=== PATIENT | female | born 1955 | race Caucasian/White ===

== ENCOUNTER → 2020-02-12 11:17 | Outpatient (BNVA) | payer MEDICARE, MEDICAID, SELFPAY | PROVIDERS: Family Provider Family Medicine; PCP Family Medicine; Visit Provider Family Medicine | DX: M84.362A Stress fracture, left tibia, initial encounter for fracture (principal); E78.00 Pure hypercholesterolemia, unspecified; I10 Essential (primary) hypertension; E11.9 Type 2 diabetes mellitus without complications | CPT/HCPCS: 73590; 80053; 80061; 83036; 85025 ==

== ENCOUNTER → 2020-11-12 15:18 | Outpatient (BNVA) | payer MEDICARE, SELFPAY | PROVIDERS: Family Provider Family Medicine; PCP Family Medicine; Visit Provider Family Medicine | DX: E11.65 Type 2 diabetes mellitus with hyperglycemia (principal); E78.00 Pure hypercholesterolemia, unspecified; I10 Essential (primary) hypertension; Z79.4 Long term (current) use of insulin; J01.10 Acute frontal sinusitis, unspecified | CPT/HCPCS: 80053; 80061; 83036; 83721; 85025 ==

== ENCOUNTER 2021-07-26 03:06 | Inpatient (IN) | payer MEDICARE, MEDICAID, SELFPAY ==
[2021-07-26] VITALS (21 sets, daily range): BP systolic 123–167; BP diastolic 59–81; PULSE 72–99; RESP 16–24; TEMP 36.7–37; O2SAT 72–96; BMI 35.8
--- NOTE | 2021-07-26 03:07 | ECG_ITS ---
[facility] Test Date: 2021-07-26 Pat Name: Serenity Ramirez Department: Room: Gender: Female Controlled Area Checker: : 1955 Requested By: Marielle Massey Order Number: [id number] Reading MD: Bruna Bangura M.D. Measurements Intervals [place] Rate: 77 P: 21 NM: 156 QRS: 24 QRSD: 102 T: 52 QT: 405 QTc: 460 Interpretive Statements SINUS RHYTHM NONSPECIFIC T-WAVE ABNORMALITY Compared to ECG 07/23/2021 15:12:22 T-wave abnormality now present Electronically Signed On 07-26-2021 15:00:53 CDT by Bruna Bnagura M.D. [id number]
--- NOTE | 2021-07-26 03:07 | CTR_ITS ---
PROCEDURE INFORMATION: Exam: CT Head Without Contrast Exam date and time: 07/26/2021 3:07 AM Age: 66 years old Clinical indication: Weakness, extremity; Patient HX: Witnessed collapse with left extremity weakness. History of prior RT side stroke. Last known well time of 45 minutes ago. ; Additional info: Symptoms of acute stroke TECHNIQUE: Imaging protocol: Computed tomography of the head without contrast. Radiation optimization: All CT scans at this facility use at least one of these dose optimization techniques: automated exposure control; mA and/or kV adjustment per patient size (includes targeted exams where dose is matched to clinical indication); or iterative reconstruction. Other technique: STROKE PROTOCOL was implemented. COMPARISON: MR head wo/w con [id number] 07/24/2021 9:15 AM RADIATION DOSE METRICS: Total DLP (mGy-cm): 835.78 FINDINGS: Brain: Focal hypoattenuation seen within the right frontal haas radiata compatible with a subacute infarction. This was present on MRI imaging dated 07/24/2021. Scattered hypodense foci are seen in the deep white matter of the left cerebral hemisphere compatible with chronic lacunar infarctions. These appear stable as well. Cerebral ventricles: No ventriculomegaly. Paranasal sinuses: Visualized sinuses are unremarkable. No fluid levels. Mastoid air cells: Visualized mastoid air cells are well aerated. Bones/joints: Unremarkable. No acute fracture. Soft tissues: Unremarkable. CT/CT head wo con* [id number] IMPRESSION: There are no new acute intracranial findings. ASSESSMENT: ASPECTS ([place] Stroke Program Early CT Score) is 10.
--- NOTE | 2021-07-26 03:13 | W.ED.NEUROSD ---
HPI - Neuro Symptoms/Deficit General: Chief Complaint: Neuro Symptoms/Deficit Stated Complaint: Stroke Time Seen by Provider: 07/26/21 03:07 Source: patient and EMS Mode of arrival: EMS Limitations: no limitations History of Present Illness: 66-year-old female who had been admitted here few days ago for TIA at that time she is having some right-sided facial droop. Speaking to her he states that she has had some left-sided weakness throughout the day yesterday was having hard time opening doors and went to bed 1130 he states that she had slurred speech yesterday as well. He states that she woke up about 245 with increasing left-sided weakness and left facial droop and fell when she tried to get up and stand Associated symptoms: Deny chest pain, nausea or vomiting Review of Systems Const: Denies: fever(s), chills, body aches or change in appetite Eyes: Denies: blurry vision or eye discomfort ENMT: Denies: throat pain or dental pain Card: Denies: chest pain Resp: Denies: dyspnea GI: Denies: abdominal pain, nausea, vomiting or diarrhea : Denies: dysuria Musc: Denies: neck pain or back pain Skin/Breast: Denies: rash Neuro: Reports: weakness in extremities Psych: Denies: depression [place]/Lymph: Denies: easy bruising All/Imm: Denies: urticaria PFSH ED PFSH: Medical History Cardiac arrest Complicated UTI (urinary tract infection) Diabetes Epilepsia Hypercholesteremia Hypertension Seizure Surgical History No significant past surgical history Family History Other No significant family history Social History Smoking and tobacco status: never smoked Alcohol intake: never Household members: significant other NIH stroke score NIHSS: Level Of Consciousness - 1a: 0 Level Of Consciousness Questions - 1b: Both Correct Level Of Consciousness Commands - 1c: Both Correct Best Gaze - 2: Normal Visual [place] - 3: No Visual Loss Facial Palsy - 4: Partial Paralysis Motor Arm Right - 5: No Drift Motor Arm Left - 5: Effort Against [place] Motor Leg Right - 6: No Drift Motor Leg Left - 6: Effort Against [place] Limb Ataxia - 7: Absent Sensory - 8: Normal Best Language - 9: Mild/Moderate Aphasia Dysarthia - 10: Mild/Moderate Dysarthia Extinction And Inattention - 11: 0 Score: Total Score: 8 Physical Exam Const: COMMON NORMALS: no acute distress, patient oriented x3 and healthy appearing HENMT: COMMON NORMALS: normocephalic and atraumatic HEAD & SCALP: normocephalic and atraumatic Eye: COMMON NORMALS: Equal, round and reactive pupils present and EOMs intact bilaterally PUPIL: Yes Equal, round and reactive pupils present Neck/C-Spine: COMMON NORMALS: full ROM and supple Chest: COMMONS NORMALS: normal inspection of the chest and normal palpation of entire chest wall Resp: COMMON NORMALS: normal respiratory effort, No retractions, No use of accessory muscles and clear to auscultation bilaterally AUSCULTATION: clear to auscultation bilaterally Cardio: COMMON NORMALS: regular rate, regular rhythm and No murmurs present (Cardio) RATE: regular rate RHYTHM: regular rhythm GI: COMMON NORMALS: Normal to inspection, nondistended, normoactive bowel sounds present, Soft to palpation, non-tender and no masses PALPATION: Yes Soft to palpation Extremity: COMMON NORMALS: normal to inspection and full ROM Neuro: COMMON NORMALS: patient oriented x3 and no focal motor deficits OTHER: left sided facial droop, left arm and leg weakness Psych: COMMON NORMALS: mental status grossly normal, Normal thought process present and cooperative THOUGHT PROCESS: Normal thought process present Skin: COMMON NORMALS: no rashes or lesions noted and no wounds GENERAL SKIN EXAM: no rashes or lesions noted Course Vital Signs: Vital signs: Vital Signs Temperature 98.0 F 07/26/21 03:11 Pulse Rate 77 07/26/21 03:11 Respiratory Rate 16 07/26/21 03:11 Blood Pressure 161/66 07/26/21 03:11 Pulse Oximetry 95 07/26/21 03:11 MDM - Neuro Symptoms/Deficit Medical Decision Making Patient presents with a CVA. Patient's had multiple falls and increasing weakness since being home neurology was consulted through [facility] patient is not a tPA candidate due to time as this been going on for days. They did recommend readmission I spoke to family we will readmit her at this time. Lab Data : 07/26/21 03:30 07/26/21 03:[address] 07/26/21 03:07 IMPRESSION: There are no new acute intracranial findings. ASSESSMENT: ASPECTS ([place] Stroke Program Early CT Score) is 10. Chest X-Ray 07/26/21 03:22 IMPRESSION: No acute findings. Head/Neck CTA 07/26/21 03:54 IMPRESSION: 1. No large vessel stenosis or occlusion. 2. Multiple areas of infarction seen within the deep white matter of the cerebral hemispheres bilaterally. The largest is seen in the right posterior frontal deep white matter. Today, this lesion appears larger compared with 07/23/2021 but similar in size configuration compared with the MRI a 07/24/2021.. IMPRESSION: No stenosis or occlusion. REFERENCES: NASCET CRITERIA. The degree of internal carotid artery stenosis is based on NASCET criteria. Normal is no stenosis. Mild is less than 50% stenosis. Moderate is 50-69% stenosis. Severe is 70% to 99% stenosis. Total occlusion is no detectable patent lumen. Laboratory Results WBC 8.2 10^3/uL (4.0-10.0) 07/26/21 03:30 RBC 5.01 10^6/uL (4.1-5.3) 07/26/21 03:30 Hgb 15.0 g/dL (11.5-15.3) 07/26/21 03:30 Hct 45.1 % (37.0-47.0) 07/26/21 03:30 MCV 90.0 fl (81-99) 07/26/21 03:30 MCH 29.9 pg (28.0-34.0) 07/26/21 03:30 MCHC 33.3 g/dL (30.0-36.0) 07/26/21 03:30 RDW 11.8 % (12.1-15.1) L 07/26/21 03:30 Plt Count 257 10^3/cmm (130-400) 07/26/21 03:30 MPV 9.9 fL (7.4-10.4) 07/26/21 03:30 Neut % (Auto) 71.4 % 07/26/21 03:30 Lymph % (Auto) 16.4 % 07/26/21 03:30 [place] % (Auto) 8.8 % 07/26/21 03:30 Eos % (Auto) 2.6 % 07/26/21 03:30 Baso % (Auto) 0.6 % 07/26/21 03:30 Neut # (Auto) 5.86 10^3/uL (1.8-7.7) 07/26/21 03:30 Lymph # (Auto) 1.4 10^3/uL (0.8-4.8) 07/26/21 03:30 [place] # (Auto) 0.7 10^3/uL (0.2-0.9) 07/26/21 03:30 Eos # (Auto) 0.2 10^3/uL (0.0-0.8) 07/26/21 03:30 Baso # (Auto) 0.1 10^3/uL (0.0-0.1) 07/26/21 03:30 Nucleated RBC % (auto) 0 % 07/26/21 03:30 Nucleated RBCs # 0.0 /100WBC 07/26/21 03:30 PT 13.10 SECONDS (12.1-14.9) 07/26/21 03:30 INR 0.97 (0.8-1.2) 07/26/21 03:30 APTT 24.6 SECONDS (23.9-36.7) 07/26/21 03:30 Sodium 136 mmol/L (136-145) 07/26/21 03:30 Potassium 3.7 mmol/L (3.5-5.1) 07/26/21 03:30 Chloride 100 mmol/L (98-107) 07/26/21 03:30 Carbon Dioxide 25 mmol/L (22-29) 07/26/21 03:30 Anion Gap 14.7 (5-19) 07/26/21 03:30 BUN 14 mg/dL (8-23) 07/26/21 03:30 Creatinine 0.5 mg/dL (0.5-0.9) 07/26/21 03:30 GFR Calculation 122.7 mL/min (90-130) 07/26/21 03:30 Glucose 365 mg/dL (65-115) H 07/26/21 03:30 POC Glucose 324 mg/dL (70-110) H 07/26/21 03:17 Calculated Osmolality 297 mOsm/kg (285-295) H 07/26/21 03:30 Calcium 8.4 mg/dL (8.5-10.5) L 07/26/21 03:30 Total Bilirubin 0.6 mg/dL (0.15-1.2) 07/26/21 03:30 AST 23 U/L (0-32) 07/26/21 03:30 ALT 23 U/L (0-33) 07/26/21 03:30 Alkaline Phosphatase 95 IU/L (35-105) 07/26/21 03:30 Total Protein 6.7 g/dL (6.6-8.7) 07/26/21 03:30 Albumin 3.7 g/dL (3.5-5.2) 07/26/21 03:30 Globulin 3.0 g/dL (1.3-4.6) 07/26/21 03:30 EKG Data EKG 1: I personally reviewed and interpreted this EKG as follows: EKG interpretation date: 07/26/21 EKG interpretation time: 03:15 Interpretation: nsr hr [address] or t wave abnormalities qrs 102 qtc 437 Discharge Plan Discharge Patient Disposition: Admitted As Inpatient Clinical Impression: CVA (cerebral vascular accident) Condition: Stable Coding Level of Care Code ED 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
[2021-07-26 03:21] LABS: Glucose Point of Care 324 mg/dL (70-110)
--- NOTE | 2021-07-26 03:22 | XRR_ITS ---
PROCEDURE INFORMATION: Exam: XR Chest Exam date and time: 07/26/2021 3:54 AM Age: 66 years old Clinical indication: Patient HX: Stroke like symptoms. ; Additional info: CVA TECHNIQUE: Imaging protocol: XR of the chest. Views: 1 view. COMPARISON: CR Chest 1 [place] [id number] 11/13/2016 11:00 AM FINDINGS: Lungs: Unremarkable. No consolidation. Pleural spaces: Unremarkable. No pleural effusion. No pneumothorax. Heart/Mediastinum: Unremarkable. No cardiomegaly. Bones/joints: Unremarkable. XR/XR chest 1V portable [id number] IMPRESSION: No acute findings.
[2021-07-26 03:46] LABS: Basophils # 0.1 10^3/uL (0.0-0.1); Basophils % 0.6 %; Eosinophils # 0.2 10^3/uL (0.0-0.8); Eosinophils % 2.6 %; Hematocrit 45.1 % (37.0-47.0); Lymphocytes # 1.4 10^3/uL (0.8-4.8); Lymphocytes % 16.4 %; Mean Corpuscular HGB Conc 33.3 g/dL (30.0-36.0); Mean Corpuscular Hemoglobin 29.9 pg (28.0-34.0); Mean Platelet Volume 9.9 fL (7.4-10.4); Monocytes # 0.7 10^3/uL (0.2-0.9); Monocytes % 8.8 %; Neutrophils # 5.86 10^3/uL (1.8-7.7); Neutrophils % 71.4 %; Nucleated Red Blood Cells % 0 %; Platelet Count 257 10^3/cmm (130-400); Red Blood Count 5.01 10^6/uL (4.1-5.3); Red Cell Distribution Width 11.8 % (12.1-15.1); White Blood Count 8.2 10^3/uL (4.0-10.0)
--- NOTE | 2021-07-26 03:54 | CTR_ITS ---
PROCEDURE INFORMATION: Exam: CT Angiography Head With Contrast, Arteriography Exam date and time: 07/26/2021 4:09 AM Age: 66 years old Clinical indication: Patient HX: Sudden onset of left sided weakness this a. M. History of RT sided stroke. ; Additional info: CVA TECHNIQUE: Imaging protocol: Computed tomography angiography of the head with contrast. Exam focused on the arteries. 3D rendering (Not supervised by radiologist): MIP and/or 3D reconstructed images were created by the technologist. Radiation optimization: All CT scans at this facility use at least one of these dose optimization techniques: automated exposure control; mA and/or kV adjustment per patient size (includes targeted exams where dose is matched to clinical indication); or iterative reconstruction. Contrast material: OMNI 350; Contrast volume: 95 ml; Contrast route: INTRAVENOUS (IV); COMPARISON: 1. CT angio headneck* [id number] 07/23/2021 3:[address] head wo con* [id number] 07/26/2021 3:07 AM RADIATION DOSE METRICS: Total DLP (mGy-cm): 2569.09 FINDINGS: ANTERIOR CIRCULATION: Right internal carotid artery: Unremarkable. Intracranial segment is patent with no significant stenosis. No aneurysm. Right middle cerebral artery: Unremarkable. No occlusion or significant stenosis. No aneurysm. Right anterior cerebral artery: Hypoplastic A1 segment again seen the. No occlusion or significant stenosis. No aneurysm. Left internal carotid artery: Unremarkable. Intracranial segment is patent with no significant stenosis. No aneurysm. Left middle cerebral artery: Unremarkable. No occlusion or significant stenosis. No aneurysm. Left anterior cerebral artery: Unremarkable. No occlusion or significant stenosis. No aneurysm. POSTERIOR CIRCULATION: Right vertebral artery: Unremarkable. No occlusion or significant stenosis. No aneurysm. Left vertebral artery: Unremarkable. No occlusion or significant stenosis. No aneurysm. Basilar artery: Unremarkable. No occlusion or significant stenosis. No aneurysm. Right posterior cerebral artery: Unremarkable. No occlusion or significant stenosis. No aneurysm. Left posterior cerebral artery: Unremarkable. No occlusion or significant stenosis. No aneurysm. Brain: Bilateral areas of hypoattenuation are seen within the deep white matter of the cerebral hemispheres. The most prominent area hypoattenuation seen within the right posterior frontal deep white. Compared with 07/23/2021, the size of the focal infarction has increased. Previously, it measured approximately 10 x 11 x 11 mm, today it measures approximately 13 x 17 x 25 mm. However, it is similar in configuration and size compared with the MRI examination dated 07/24/2021. No definite mass, mass effect, or midline shift. Cerebral ventricles: No ventriculomegaly. Bones/joints: Unremarkable. No acute fracture. Soft tissues: Unremarkable. PROCEDURE INFORMATION: Exam: CT Angiography Neck With Contrast Exam date and time: 07/26/2021 4:09 AM Age: 66 years old Clinical indication: Patient HX: Sudden onset of left sided weakness this a. M. History of RT sided stroke. ; Additional info: CVA TECHNIQUE: Imaging protocol: Computed tomography angiography of the neck with contrast. 3D rendering (Not supervised by radiologist): MIP and/or 3D reconstructed images were created by the technologist. Radiation optimization: All CT scans at this facility use at least one of these dose optimization techniques: automated exposure control; mA and/or kV adjustment per patient size (includes targeted exams where dose is matched to clinical indication); or iterative reconstruction. Contrast material: OMNI 350; Contrast volume: 95 ml; Contrast route: INTRAVENOUS (IV); COMPARISON: 1. CT angio headneck* [id number] 07/23/2021 3:[address] head wo con* [id number] 07/26/2021 3:07 AM RADIATION DOSE METRICS: Total DLP (mGy-cm): 2569.09 FINDINGS: Right common carotid artery: No stenosis. No dissection or occlusion. Right internal carotid artery: No stenosis of the extracranial segment. No dissection or occlusion. Right external carotid artery: No occlusion or stenosis of the origin. Left common carotid artery: No stenosis. No dissection or occlusion. Left internal carotid artery: No stenosis of the extracranial segment. No dissection or occlusion. Left external carotid artery: No occlusion or stenosis of the origin. Right vertebral artery: No stenosis. No dissection or occlusion. Left vertebral artery: No stenosis. No dissection or occlusion. Soft tissues: Normal. No significant soft tissue swelling. Bones/joints: No acute fracture. CT/CT angio headneck* [id number] IMPRESSION: 1. No large vessel stenosis or occlusion. 2. Multiple areas of infarction seen within the deep white matter of the cerebral hemispheres bilaterally. The largest is seen in the right posterior frontal deep white matter. Today, this lesion appears larger compared with 07/23/2021 but similar in size configuration compared with the MRI a 07/24/2021.. IMPRESSION: No stenosis or occlusion. REFERENCES: NASCET CRITERIA. The degree of internal carotid artery stenosis is based on NASCET criteria. Normal is no stenosis. Mild is less than 50% stenosis. Moderate is 50-69% stenosis. Severe is 70% to 99% stenosis. Total occlusion is no detectable patent lumen.
[2021-07-26 04:05] LABS: INR 0.97 (0.8-1.2); Partial Thromboplastin Time 24.6 SECONDS (23.9-36.7)
[2021-07-26] MEDS: iohexol 350 mg/mL 100 mL Btl IV (04:08)
[2021-07-26 04:11] LABS: Alanine Aminotransferase 23 U/L (0-33); Albumin Level 3.7 g/dL (3.5-5.2); Alkaline Phosphatase 95 IU/L (35-105); Anion Gap 14.7 (5-19); Aspartate Amino Transferase 23 U/L (0-32); Blood Urea Nitrogen 14 mg/dL (8-23); Calcium 8.4 mg/dL (8.5-10.5); Carbon Dioxide 25 mmol/L (22-29); Chloride 100 mmol/L (98-107); Glomerular Filtration Rate 122.7 mL/min (90-130); Glucose 365 mg/dL (65-115); Osmolality Calculated 297 mOsm/kg (285-295); Potassium 3.7 mmol/L (3.5-5.1); Sodium 136 mmol/L (136-145); Total Bilirubin 0.6 mg/dL (0.15-1.2); Total Protein 6.7 g/dL (6.6-8.7)
--- NOTE | 2021-07-26 05:14 | ECG_ITS ---
[facility] Test Date: 2021-07-26 Pat Name: Serenity Ramirez Department: Room: Gender: Female Vp Cardiovascular: : 1955 Requested By: Brenda Mukherjee Order Number: [id number] Reading MD: Bruna Bangura M.D. Measurements Intervals [place] Rate: 83 P: 37 [place]: 155 QRS: 29 QRSD: 109 T: 55 QT: 415 QTc: 489 Interpretive Statements SINUS RHYTHM WITH OCCASIONAL ECTOPIC PREMATURE COMPLEXES Compared to ECG 07/26/2021 03:15:19 T-wave abnormality no longer present Electronically Signed On 07-26-2021 15:00:38 CDT by Bruna Bangura M.D. [email or web address].[employer]/store/OM/[id number]
--- NOTE | 2021-07-26 05:17 | P.HP_ITS ---
Providers/Chief Complaint Primary Care Provider: Zohaib West MD Chief Complaint: Stroke History of Present Illness The patient is a 58-year-old female who presented with chief complaint of fall which occurred approximate 1:45 AM on July 26, 2021. The patient Cates that she simply lost her balance and fell on her left side. The patient was recently hospitalized at this facility from July 23, 2021 until July 24, 2021 for CVA. Over the patient/the patient's , the patient has had increasing dysphasia and left-sided weakness. She denies fever, rigors, nausea, vomiting, cough, wheeze, abdominal pain, diarrhea, myalgia, dysuria, chest pain, dyspnea, lightheaded, dizziness, diaphoresis, palpitations, sense of rapid heartbeat, sensation of irregular heartbeat, diplopia, blurry vision, dysphagia, paresthesia/anesthesia of any part of her body. She states she is compliant with medication intake.He presents for further evaluation Review of Systems General: Reports: 10 or more systems reviewed and unremarkable except in HPI and below Medications/Allergies Home Medications Medication Instructions Recorded Confirmed Last Taken Type glipizide 5 mg tablet 5 mg PO BID 90 Days #180 tab 11/11/20 07/23/21 07/23/21 Rx cetirizine 10 mg capsule (All Day 10 mg PO DAILY #60 cap 05/06/21 07/23/21 07/23/21 Rx Allergy (cetirizine)) pen needle, diabetic 31 gauge x #300 ea 07/07/21 07/23/21 Unknown Rx 06/25 (TechLITE Pen Needle) aspirin 81 mg chewable tablet 81 mg PO DAILY 07/23/21 07/23/21 07/20/21 History insulin detemir U-100 100 unit/mL 50 unit SUBCUT BID 07/23/21 07/23/21 07/23/21 History (3 mL) subcutaneous pen (Levemir FlexTouch U-100 Insulin) sitagliptin 50 mg tablet (Januvia) 50 mg PO DAILY 07/23/21 07/23/21 07/23/21 History vitamin B complex 1 cap PO DAILY 07/23/21 07/23/21 07/20/21 History zinc 50 mg tablet 50 mg PO DAILY 07/23/21 07/23/21 07/20/21 History atenolol 100 mg tablet 50 mg PO DAILY PRN #0 tab 07/24/21 07/23/21 07/23/21 Rx atorvastatin 40 mg tablet 40 mg PO BEDTIME #90 tab 07/24/21 Unknown Rx clopidogrel 75 mg tablet (Plavix) 75 mg PO DAILY #21 tab 07/24/21 Unknown Rx lisinopril 2.5 mg tablet 2.5 mg PO DAILY #30 tab 07/24/21 Unknown Rx Allergies Allergy/AdvReac Type Severity Reaction Status Date / Time Sulfa (Sulfonamide Allergy na Verified 07/23/21 14:49 Antibiotics) PFSH Acute PFSH: Medical History Cardiac arrest Complicated UTI (urinary tract infection) Diabetes Epilepsia Hypercholesteremia Hypertension Seizure Surgical History No significant past surgical history Family History Other No significant family history Social History Smoking and tobacco status: never smoked Alcohol intake: never Household members: significant other Vitals/I&O/Wt Last Vital Signs Temp 98.0 F 07/26/21 03:11 Pulse 77 07/26/21 03:11 Resp 16 07/26/21 03:11 BP 161/66 07/26/21 03:11 Pulse Ox 95 07/26/21 03:11 Weight last 48 hrs Weight 85.91 kg Physical Exam Narrative: General: -Alert -No acute distress -No dyspnea -No tachypnea Head: -Atraumatic -Normocephalic Eyes: -Pupils equally round and reactive to light and accommodation -Extraocular muscles intact Neurological: -Cranial nerves II-XII intact Neck: -No jugular venous distention -No thyromegaly -No cervical lymphadenopathy Heart: -Regular rate -Regular rhythm -No murmurs -No gallops -No rubs Lungs: -No wheeze -No rhonchi -No rales ? Abdomen: -Normal bowel sounds in all four quadrants -No rebound -No guarding -No tenderness Extremities: -2/4 pulse in all four extremities -No clubbing -No cyanosis -No edema -No calf tenderness present bilaterally -Negative Claudy?s sign bilaterally Musculoskeletal: -5/5 bilateral upper extremity strength -5/5 bilateral lower extremity strength -Sensorium of bilateral upper extremities are equal and intact -Sensorium of bilateral lower extremities are equal and intact ? Additional Details / Additional Findings / Exceptions / Miscellaneous: Data : 07/26/21 03:30 07/26/21 03:30 A&P Assessment and plan (1) CVA (cerebral vascular accident): Status: Acute Plan CVA. This may be an extension/continuation of previous CVA for which the patient was recently hospitalized at this visit facility from July 23, 2021 until July 24, 2021. Will monitor patient on telemetry and checks her cardiac enzymes. Check TSH, free T4, B12, folate, magnesium level. In the morning we will recheck EKG. Will not recheck a fasting lipid panel as it was performed recently. Neuro checks every 4 hours. Urinalysis pending. Echocardiogram was recently performed and will not be repeated. MRI of the brain was recently performed and will not be repeated as this would not change our current treatment plan. Physical therapy consult pending. Aspirin 81 Mill grams by mouth daily plus Plavix 9 5 Mill grams by mouth daily plus Lipitor 80 Mill cans by mouth daily at bedtime Epilepsy. Seizure precautions Seasonal allergies Grade 1 diastolic dysfunction Diabetes. Will check fasting glucose every before meals and at bedtime and provide insulin sliding scale plus Levemir 50 units of cutaneously 3 times a day Hyperlipidemia. Lipitor 80 Mill grams by mouth daily at bedtime. We will not recheck fasting lipid panel as this was recently checked Hypertension Obesity. The patient will be counseled regarding lifestyle modification DVT Proflex is. 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
[2021-07-26] MEDS: aspirin 81 mg Chew Tablet PO (05:19)
[2021-07-26 05:41] LABS: Troponin(5th) Baseline 10 ng/L (0-10)
[2021-07-26 06:07] LABS: Free T4 Free Thyroxine 1.06 ng/dL (0.82-1.77); Magnesium 1.6 mg/dL (1.7-2.3); Thyroid Stimulating Hormone 2.18 uIU/mL (0.27-4.20)
[2021-07-26 06:18] LABS: Vitamin B12 745 pg/mL (232-1245)
[2021-07-26 07:02] LABS: Folate Level 18.9 ng/mL (4.8-37.3)
--- NOTE | 2021-07-26 07:14 | ECG_ITS ---
[facility] Test Date: 2021-07-26 Pat Name: Serenity Ramirez Department: Room: 251 Gender: Female Platform Operations Director: : 1955 Requested By: Brenda Mukherjee Order Number: [id number] Raghavendra MD: Bruna Bangura M.D. Measurements Intervals [place] Rate: 75 P: 38 [place]: 155 QRS: 21 QRSD: 93 T: 35 QT: 408 QTc: 458 Interpretive Statements SINUS RHYTHM Compared to ECG 07/26/2021 05:22:08 No significant changes Electronically Signed On 07-26-2021 15:03:30 CDT by Bruna Bangura M.D. [id number]
[2021-07-26 07:40] LABS: Glucose Point of Care 360 mg/dL (70-110)
[2021-07-26 07:54] LABS: Troponin 5 2HR 8.66 ng/L (0-10)
[2021-07-26] MEDS: insulin lispro 100 unit/1 mL SUBCUT ×4 (08:00→22:02)
[2021-07-26] MEDS: aspirin 81 mg EC Tablet PO (08:01)
[2021-07-26] MEDS: clopidogrel 75 mg Tablet PO (08:01)
[2021-07-26 08:18] LABS: Troponin 5 2HR Delta -1.34 ABS# (0-10)
[2021-07-26 11:34] LABS: Troponin 5 6HR 8.47 ng/L (0-10)
[2021-07-26 12:05] LABS: Glucose Point of Care 250 mg/dL (70-110)
[2021-07-26 12:15] LABS: Troponin 5 6HR Delta -1.53 ng/L (0-12)
--- NOTE | 2021-07-26 13:56 | PM.MISC ---
Miscellaneous Note Purpose of Documentation: Progress note Note: Met with patient this morning and examined. She does have left-sided upper and lower extremity weakness and a left facial droop. Patient lives at home and is requesting for home health. Awaiting physical therapy education patient therapy consult today. Son and his girlfriend at bedside were updated. Awaiting swallow evaluation as well. Previously she was recommended nectar thick liquids and regular diet.
[2021-07-26 17:47] LABS: Glucose Point of Care 199 mg/dL (70-110)
[2021-07-26] MEDS: atorvastatin 40 mg Tablet 80 MG PO (20:58)
[2021-07-27] VITALS (8 sets, daily range): BP systolic 134–185; BP diastolic 77–97; PULSE 79–137; RESP 16–20; TEMP 36.6–36.7; O2SAT 93–95
[2021-07-27 06:04] LABS: Basophils # 0.1 10^3/uL (0.0-0.1); Basophils % 0.8 %; Eosinophils # 0.2 10^3/uL (0.0-0.8); Eosinophils % 2.3 %; Hematocrit 44.2 % (37.0-47.0); Hemoglobin 14.3 g/dL (11.5-15.3); Lymphocytes # 1.4 10^3/uL (0.8-4.8); Lymphocytes % 19.1 %; Mean Corpuscular HGB Conc 32.4 g/dL (30.0-36.0); Mean Corpuscular Volume 92.9 fl (81-99); Mean Platelet Volume 9.3 fL (7.4-10.4); Monocytes # 0.7 10^3/uL (0.2-0.9); Monocytes % 9.7 %; Neutrophils # 4.94 10^3/uL (1.8-7.7); Neutrophils % 67.8 %; Nucleated Red Blood Cells % 0 %; Platelet Count 227 10^3/cmm (130-400); Red Blood Count 4.76 10^6/uL (4.1-5.3); Red Cell Distribution Width 11.9 % (12.1-15.1); White Blood Count 7.3 10^3/uL (4.0-10.0)
[2021-07-27 06:14] LABS: Glucose Point of Care 194 mg/dL (70-110)
[2021-07-27 06:27] LABS: Anion Gap 14.4 (5-19); Blood Urea Nitrogen 12 mg/dL (8-23); Calcium 8.2 mg/dL (8.5-10.5); Carbon Dioxide 25 mmol/L (22-29); Chloride 104 mmol/L (98-107); Glomerular Filtration Rate 158.7 mL/min (90-130); Glucose 195 mg/dL (65-115); Magnesium 1.8 mg/dL (1.7-2.3); Osmolality Calculated 295 mOsm/kg (285-295); Potassium 3.4 mmol/L (3.5-5.1); Sodium 140 mmol/L (136-145)
[2021-07-27 06:39] LABS: Glucose Point of Care 234 mg/dL (70-110)
[2021-07-27] MEDS: aspirin 81 mg EC Tablet PO (09:03)
[2021-07-27] MEDS: clopidogrel 75 mg Tablet PO (09:03)
[2021-07-27] MEDS: insulin lispro 100 unit/1 mL SUBCUT ×4 (09:04→22:13)
[2021-07-27 11:26] LABS: Glucose Point of Care 266 mg/dL (70-110)
--- NOTE | 2021-07-27 12:45 | P.PN_ITS ---
Subjective Subjective: Seen this morning. He states she still feels a little weak on the left side. Patient sitting up in chair getting her hair brushed. She states she is interested in going to a longterm facility at this point. Speech swallow therapy saw patient and recommended diet. No acute events overnight. Vitals/I&O/Wt Last Vital Signs Temp 98.0 F 07/27/21 07:51 Pulse 87 07/27/21 07:51 Resp 18 07/27/21 07:51 BP 162/80 07/27/21 07:51 Pulse Ox 94 07/27/21 07:51 07/26/21 07/27/21 07/27/21 22:59 06:59 14:59 Intake Total 170 / 290 120 / 120 Balance 170 / 290 120 / 120 Weight last 48 hrs Weight 85.91 kg Physical Exam Narrative: General: Alert oriented x3, patient seen sitting up in chair getting her hair brushed. HEENT: Normocephalic, atraumatic, EOMI, breathing normally. Cardio: Regular rate rhythm, normal S1-S2, no murmurs_ Respiratory: Good bilateral air entry, no wheezes no rhonchi appreciated GI: Abdomen soft, nontender, nondistended, bowel sounds + Behavior: Appropriate and cooperative Extremities: No lower extremity edema noted. Neuro: Mild left-sided facial droop present, no issues with tracking, visual gregg are okay. Awake alert and follows directions. Upper extremity strength 5 out of 5 right, 4 out of 5 on the left side. Left lower extremity weak 2 out of 5, right lower extremity 4 out of 5. She does require assistance. Data : 07/27/21 05:21 07/27/21 05:21 A&P Assessment and plan (1) CVA (cerebral vascular accident): Status: Acute (2) Strain of tendon of lower extremity: Status: Acute Qualifiers: Encounter type: initial encounter Laterality: left Qualified Code(s): S86.912A - Strain of unspecified muscle(s) and tendon(s) at lower leg level, left leg, initial encounter (3) Diabetes: Status: Acute Qualifiers: Diabetes mellitus type: type 2 Diabetes mellitus mcfp insulin use: with mcfp use Diabetes mellitus complication status: with hyperglycemia Qualified Code(s): E11.65 - Type 2 diabetes mellitus with hyperglycemia; 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 #Patient presented with left-sided weakness and a fall. #History of epilepsy #History of grade 1 diastolic dysfunction #Diabetes mellitus #Hyperlipidemia #Hypertension #Obesity ? Patient's left-sided weakness and difficulty swallowing are most like an extension of her CVA that was diagnosed 5 days ago. Patient was sent home on aspirin and Plavix. She did had a fall at home and was brought to the hospital. Patient is weaker on the left side. She would like to go to a longterm facility. Patient had a complete work-up done previous admission [address] head and neck, head CT, head MRI were completed. ? Patient is pending placement ? Continue home medications for the rest of medical issues. ? Continue to work with physical therapy/OT CODE STATUS: Limited resuscitation DVT prophylaxis bilateral SCD, Attestations Medical Necessity Statement*: Greater than 24-hour stay. Patient awaiting placement to longterm facility. Coding Level of Care Code Acute Didactic Program In Dietetics Director for [facility] Diagnoses CVA (cerebral vascular accident) I63.9 Strain of tendon of lower extremity S86.912A Encounter type: initial encounter Laterality: left Diabetes E11.65; Z79.4 Diabetes mellitus type: type 2 Diabetes mellitus mcfp insulin use: with mcfp use Diabetes mellitus complication status: with hyperglycemia Hypertension I10 Hypertension type: essential hypertension Hypercholesteremia E78.00
[2021-07-27 18:09] LABS: Glucose Point of Care 244 mg/dL (70-110)
--- NOTE | 2021-07-27 20:58 | PC.NURSE ---
Nurse responded to call light, pt resting in bed voiced complaint of increased heart rate, pt denied any chest pain or pressure, pt stated she had not had her beta blockers and that she normally takes atenolol 100 mg but had recently been reduced to 50 mg. Nurse took vital signs BP 170/97 HR 137 RR 18 SPO2 93 on RA. Patient was placed on tele and Dr. Mukherjee called and verbal order given for one time dose of Metoprolol 50 mg PO once.
[2021-07-27] MEDS: metoprolol tartrate 50 mg Tablet PO (21:23)
[2021-07-27] MEDS: atorvastatin 40 mg Tablet 80 MG PO (21:23)
[2021-07-27 21:46] LABS: Glucose Point of Care 235 mg/dL (70-110)
[2021-07-28] VITALS (9 sets, daily range): BP systolic 136–178; BP diastolic 77–89; PULSE 72–103; RESP 16–20; TEMP 36.5–36.9; O2SAT 92–96
[2021-07-28 06:40] LABS: Glucose Point of Care 187 mg/dL (70-110)
[2021-07-28] MEDS: aspirin 81 mg EC Tablet PO (08:06)
[2021-07-28] MEDS: clopidogrel 75 mg Tablet PO (08:06)
[2021-07-28] MEDS: insulin lispro 100 unit/1 mL SUBCUT ×4 (08:08→20:31)
--- NOTE | 2021-07-28 10:22 | PC.CHAP ---
Pastoral Care Encounter/Spiritual Assessment Type of Contact [] Declined nursing scheduler visit [] Patient/Family/Request visit [] Outpatient visit [] Follow-up visit [] Physician referral [] Code/Alert [x] Routine visit [] Staff referral [] Actively dying [] Patient sleeping [] Family support [] [] Out of room [] Palliative care [] [] Receiving care in room [] Pre-surgical visit [] Trauma [] Long length of stay [] ICU visit [] Other: Relational/Emotional Strength [x] Patient feels connected with others/family/visitors/staff [] Distress [] Loneliness/isolation [] Abandonment Spirituality of Patient [x] Person of Niyah [] Attends Mandaen of their Niyah [x] Believes in Prayer [] Reads Bible or Mosque materials [] There are Spiritual issues to be addressed Yarding Supervisor Interventions [x Prayer [x] Active listening [] Non-anxious presence [] Spiritual/emotional support [] Crisis/trauma care [] Spiritual counseling [] Bereavement support [] Provided bereavement packet [] Provided Bible/devotional materials [] Provided toy/stuffed animal, coloring book to patient or family member [] Provided Communion [] Anointing/[place] [] Salvation []x Completed spiritual assessment [] Other: Impact on Illness or Injury [] Angry [] Fearful [] Anxious [] Often cries [] Exhaustion [] Unable to work [] Unable to attend confucianist [] Unable to walk/stand [] Unable to read [] Unable to drive [] Unable to eat/drink [] Unable to sleep [] Unable to be with family [] Patient intubated [] Other: Summary Time spent with patient 10 min
[2021-07-28 12:22] LABS: Glucose Point of Care 260 mg/dL (70-110)
--- NOTE | 2021-07-28 14:28 | PM.PN ---
Subjective Subjective: Patient reports doing okay. No active complaints. Reports left upper extremity weakness and some speech difficulties which have improved. Denies choking, cough, aspirations. No fever or chills. No shortness of breath. No headache. No nausea or vomiting. Medications: Medication Review Details: Generic Name Dose Route Start Last Admin Trade Name Jodi PRN Reason Stop Dose Admin Aspirin 81 mg 07/26/21 09:00 07/28/21 08:06 Aspirin 81 Mg Ec Tablet PO 81 mg DAILY IVETTE Administration Atorvastatin Calci um 80 mg 07/26/21 21:00 07/27/21 21:23 Atorvastatin 40 Mg Tablet PO 80 mg BEDTIME IVETTE Administration Clopidogrel Bisulf ate 75 mg 07/26/21 09:00 07/28/21 08:06 Clopidogrel 75 M g Tablet PO 75 mg DAILY IVETTE Administration Insulin Detemir 50 unit 07/26/21 09:00 07/28/21 08:08 Insulin Detemir 100 Units/1 Ml SUBCUT 50 unit BID IVETTE Administration Insulin Human Lisp ro 0 unit 07/26/21 08:00 07/28/21 12:30 Insulin Lispro 1 00 Unit/1 Ml SUBCUT 6 unit WM&BEDTIME IVETTE Administration Protocol Vitals/I&O/Wt Last Vital Signs Temp 98.5 F 07/28/21 11:37 Pulse 88 07/28/21 11:37 Resp 17 07/28/21 11:37 BP 136/77 07/28/21 11:37 Pulse Ox 95 07/28/21 11:37 07/27/21 07/28/21 07/28/21 22:59 06:59 14:59 Intake Total 240 / 480 300 / 300 Balance 240 / 480 300 / 300 Physical Exam Narrative: General: Alert oriented x3, no acute distress. Mood and affect are appropriate. Responses are adequate. Skin is warm and dry. Moist mucous membranes. HEENT: Normocephalic, atraumatic, EOMI, breathing normally. Cardio: Regular rate rhythm, normal S1-S2, no murmurs_ Respiratory: Good bilateral air entry, no wheezes no rhonchi appreciated GI: Abdomen soft, nontender, nondistended, bowel sounds + Behavior: Appropriate and cooperative Extremities: No lower extremity edema noted. No calf tenderness. No cyanosis. Neuro: Mild left-sided facial droop present, no issues with tracking, visual gregg are okay. Awake alert and follows directions. Upper extremity strength 5 out of 5 right, 3 out of 5 on the left side. Left lower extremity weak 4 out of 5, right lower extremity 4 out of 5. She does require assistance. Data : 07/27/21 05:21 07/27/21 05:21 Other Labs: Radiology Impressions Head CT 07/26/21 03:07 IMPRESSION: There are no new acute intracranial findings. ASSESSMENT: ASPECTS ([place] Stroke Program Early CT Score) is 10. Chest X-Ray 07/26/21 03:22 IMPRESSION: No acute findings. Head/Neck CTA 07/26/21 03:54 IMPRESSION: 1. No large vessel stenosis or occlusion. 2. Multiple areas of infarction seen within the deep white matter of the cerebral hemispheres bilaterally. The largest is seen in the right posterior frontal deep white matter. Today, this lesion appears larger compared with 07/23/2021 but similar in size configuration compared with the MRI a 07/24/2021.. IMPRESSION: No stenosis or occlusion. REFERENCES: NASCET CRITERIA. The degree of internal carotid artery stenosis is based on NASCET criteria. Normal is no stenosis. Mild is less than 50% stenosis. Moderate is 50-69% stenosis. Severe is 70% to 99% stenosis. Total occlusion is no detectable patent lumen. Laboratory Results WBC 7.3 10^3/uL (4.0-10.0) 07/27/21 05:21 RBC 4.76 10^6/uL (4.1-5.3) 07/27/21 05:21 Hgb 14.3 g/dL (11.5-15.3) 07/27/21 05:21 Hct 44.2 % (37.0-47.0) 07/27/21 05:21 MCV 92.9 fl (81-99) 07/27/21 05:21 MCH 30.0 pg (28.0-34.0) 07/27/21 05:21 MCHC 32.4 g/dL (30.0-36.0) 07/27/21 05:21 RDW 11.9 % (12.1-15.1) L 07/27/21 05:21 Plt Count 227 10^3/cmm (130-400) 07/27/21 05:21 MPV 9.3 fL (7.4-10.4) 07/27/21 05:21 Neut % (Auto) 67.8 % 07/27/21 05:21 Lymph % (Auto) 19.1 % 07/27/21 05:21 [place] % (Auto) 9.7 % 07/27/21 05:21 Eos % (Auto) 2.3 % 07/27/21 05:21 Baso % (Auto) 0.8 % 07/27/21 05:21 Neut # (Auto) 4.94 10^3/uL (1.8-7.7) 07/27/21 05:21 Lymph # (Auto) 1.4 10^3/uL (0.8-4.8) 07/27/21 05:21 [place] # (Auto) 0.7 10^3/uL (0.2-0.9) 07/27/21 05:21 Eos # (Auto) 0.2 10^3/uL (0.0-0.8) 07/27/21 05:21 Baso # (Auto) 0.1 10^3/uL (0.0-0.1) 07/27/21 05:21 Nucleated RBC % (auto) 0 % 07/27/21 05:21 Nucleated RBCs # 0.0 /100WBC 07/27/21 05:21 PT 13.10 SECONDS (12.1-14.9) 07/26/21 03:30 INR 0.97 (0.8-1.2) 07/26/21 03:30 APTT 24.6 SECONDS (23.9-36.7) 07/26/21 03:30 Sodium 140 mmol/L (136-145) 07/27/21 05:21 Potassium 3.4 mmol/L (3.5-5.1) L 07/27/21 05:21 Chloride 104 mmol/L (98-107) 07/27/21 05:21 Carbon Dioxide 25 mmol/L (22-29) 07/27/21 05:21 Anion Gap 14.4 (5-19) 07/27/21 05:21 BUN 12 mg/dL (8-23) 07/27/21 05:21 Creatinine 0.4 mg/dL (0.5-0.9) L 07/27/21 05:21 GFR Calculation 158.7 mL/min (90-130) H 07/27/21 05:21 Glucose 195 mg/dL (65-115) H 07/27/21 05:21 POC Glucose 260 mg/dL (70-110) H 07/28/21 11:22 Calculated Osmolality 295 mOsm/kg (285-295) 07/27/21 05:21 Calcium 8.2 mg/dL (8.5-10.5) L 07/27/21 05:21 Magnesium 1.8 mg/dL (1.7-2.3) 07/27/21 05:21 Total Bilirubin 0.6 mg/dL (0.15-1.2) 07/26/21 03:30 AST 23 U/L (0-32) 07/26/21 03:30 ALT 23 U/L (0-33) 07/26/21 03:30 Alkaline Phosphatase 95 IU/L (35-105) 07/26/21 03:30 Troponin T Baseline 10 ng/L (0-10) 07/26/21 03:30 Troponin T 120 Minute 8.66 ng/L (0-10) 07/26/21 07:22 Delta Troponin T -1.34 ABS# (0-10) L 07/26/21 07:22 Troponin T Hi Sens 6Hr 8.47 ng/L (0-10) 07/26/21 10:34 Troponin T Hi Sens 6Hr Delta -1.53 ng/L (0-12) L 07/26/21 10:34 Total Protein 6.7 g/dL (6.6-8.7) 07/26/21 03:30 Albumin 3.7 g/dL (3.5-5.2) 07/26/21 03:30 Globulin 3.0 g/dL (1.3-4.6) 07/26/21 03:30 Vitamin B12 745 pg/mL (232-1245) 07/26/21 03:30 Folate 18.9 ng/mL (4.8-37.3) 07/26/21 03:30 TSH 2.18 uIU/mL (0.27-4.20) 07/26/21 03:30 Free T4 1.06 ng/dL (0.82-1.77) 07/26/21 03:30 A&P Assessment and plan (1) CVA (cerebral vascular accident): Status: Acute (2) Strain of tendon of lower extremity: Status: Acute Qualifiers: Encounter type: initial encounter Laterality: left Qualified Code(s): S86.912A - Strain of unspecified muscle(s) and tendon(s) at lower leg level, left leg, initial encounter (3) Diabetes: Status: Acute Qualifiers: Diabetes mellitus type: type 2 Diabetes mellitus long distance operator insulin use: with long-term use Diabetes mellitus complication status: with hyperglycemia Qualified Code(s): E11.65 - Type 2 diabetes mellitus with hyperglycemia; 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 #Patient presented with left-sided weakness and a fall. #History of epilepsy #History of grade 1 diastolic dysfunction #Diabetes mellitus #Hyperlipidemia #Hypertension #Obesity ? Patient's left-sided weakness and difficulty swallowing are most like an extension of her CVA that was diagnosed 5 days ago. Patient was sent home on aspirin and Plavix. She did had a fall at home and was brought to the hospital. Patient is weaker on the left side. She would like to go to a group home facility. Patient had a complete work-up done previous admission [address] head and neck, head CT, head MRI were completed. ? Patient is pending placement ? Continue home medications for the rest of medical issues. ? Continue to work with physical therapy/OT CODE STATUS: Limited resuscitation DVT prophylaxis bilateral SCD, [place] Left-sided weakness, aphasia and dysphagia secondary to recent CVA. Continuing dual antiplatelet therapy. Plavix for total of 21 days. Continuing statin. Continue PT OT. Pending placement to group home facility. Continuing aspiration precautions. Diabetes. Continue current maintenance insulin and sliding scale insulin. Hypertension. Currently well controlled. Continue current management. Dyslipidemia. Statin. DVT prophylaxis. Dual antiplatelet therapy. Encourage physical therapy and ambulation. SCDs. High risk for hemorrhagic conversion with addition of anticoagulation. The plan of care was discussed with the patient. She verbalized understanding and agreement. Discussed with multidisciplinary team. Attestations Medical Necessity Statement*: Pending placement to group home facility. Coding Level of Care Code Acute Wood Repatcher for [facility] Diagnoses CVA (cerebral vascular accident) I63.9 Strain of tendon of lower extremity S86.912A Encounter type: initial encounter Laterality: left Diabetes E11.65; Z79.4 Diabetes mellitus type: type 2 Diabetes mellitus long distance operator insulin use: with long distance operator use Diabetes mellitus complication status: with hyperglycemia Hypertension I10 Hypertension type: essential hypertension Hypercholesteremia E78.00
[2021-07-28] MEDS: atenolol 50 mg Tablet PO (14:53)
[2021-07-28 17:09] LABS: Glucose Point of Care 312 mg/dL (70-110)
--- NOTE | 2021-07-28 18:17 | PC.NURSE ---
Patient AAOx4, elevated BP and HR throughout shift and controlled with ordered medications per JUN. Multiple loose stools throughout shift with stool sample sent to lab. Patient is calm and cooperative, frequently turned and changed without difficulty or complaint. No c/o pain, no safety events during shift. Room clean and clutter free with call light in reach. Will report to oncoming nurse at shift change.
[2021-07-28 20:19] LABS: Glucose Point of Care 223 mg/dL (70-110)
[2021-07-28] MEDS: atorvastatin 40 mg Tablet 80 MG PO (20:28)
[2021-07-29] VITALS (8 sets, daily range): BP systolic 146–162; BP diastolic 71–84; PULSE 67–80; RESP 14–18; TEMP 36.7–36.8; O2SAT 92–96
--- NOTE | 2021-07-29 05:20 | NUR.SHIFT ---
Patient rested in bed throughout shift. Incontinent of bladder with cristofer cares provided. Straight cath done this morning to obtain labs that were ordered. No complaints of discomfort made this shift. Oriented x4. Left facial droop, left arm severe deficit, and left leg moderate deficit noted. Accucheck done per order with sliding scale insulin administered per scale. IV in left forearm saline locked, intact. Seizure precautions maintained.
[2021-07-29 05:43] LABS: Amphetamines Screen Urine Negative (Negative); Barbiturates Screen Urine Negative (Negative); Benzodiazepines Screen Urine Negative (Negative); Cocaine Screen Urine Negative (Negative); Opiate Screen Urine Negative (Negative); PCP Screen Urine Negative (Negative); THC Screen Urine Negative (Negative)
[2021-07-29 05:57] LABS: Bilirubin Urine Neg (Negative); Blood Urine Neg (Negative); Glucose Urine UA 1+ (Normal); Ketones Urine Negative (Negative); Leukocyte Esterase Urine Negative (Negative); Nitrate Urine Negative (Negative); Protein Urine Trace (Negative); Specific Gravity, Urine 1.025 (1.005-1.030); Urine Appearance Clear (CLEAR); Urine Color Yellow (Yellow); Urobilinogen Urine Norm (Negative); pH Urine 5 (5-7)
[2021-07-29 05:58] LABS: Add Urine Culture? No; Bacteria Urine TRACE /hpf; Mucus Urine 2+ /hpf; RBC Urine 0-4 /hpf (0-2); Squamous Epithelial Cell Urine 0-4 /hpf (0-5); WBC Urine 0-4 /hpf (0-5)
[2021-07-29 06:42] LABS: Glucose Point of Care 187 mg/dL (70-110)
[2021-07-29] MEDS: insulin lispro 100 unit/1 mL SUBCUT ×4 (07:59→21:04)
[2021-07-29] MEDS: clopidogrel 75 mg Tablet PO (08:00)
[2021-07-29] MEDS: atenolol 50 mg Tablet PO (08:00)
[2021-07-29] MEDS: aspirin 81 mg EC Tablet PO (08:00)
[2021-07-29] MEDS: lisinopril 10 mg Tablet PO (09:06)
--- NOTE | 2021-07-29 10:38 | PM.PN ---
Subjective Subjective: Patient reports doing okay. No active complaints. Reports left upper extremity weakness and some speech difficulties, without changes. Denies choking, cough, aspirations. No fever or chills. No shortness of breath. No headache. No nausea or vomiting. Medications: Medication Review Details: Generic Name Dose Route Start Last Admin Trade Name Jodi PRN Reason Stop Dose Admin Aspirin 81 mg 07/26/21 09:00 07/28/21 08:06 Aspirin 81 Mg Ec Tablet PO 81 mg DAILY IVETTE Administration Atorvastatin Calci um 80 mg 07/26/21 21:00 07/27/21 21:23 Atorvastatin 40 Mg Tablet PO 80 mg BEDTIME IVETTE Administration Clopidogrel Bisulf ate 75 mg 07/26/21 09:00 07/28/21 08:06 Clopidogrel 75 M g Tablet PO 75 mg DAILY IVETTE Administration Insulin Detemir 50 unit 07/26/21 09:00 07/28/21 08:08 Insulin Detemir 100 Units/1 Ml SUBCUT 50 unit BID IVETTE Administration Insulin Human Lisp ro 0 unit 07/26/21 08:00 07/28/21 12:30 Insulin Lispro 1 00 Unit/1 Ml SUBCUT 6 unit WM&BEDTIME IVETTE Administration Protocol Vitals/I&O/Wt Last Vital Signs Temp 98.2 F 07/29/21 07:36 Pulse 80 07/29/21 07:36 Resp 18 07/29/21 07:36 BP 162/84 07/29/21 07:36 Pulse Ox 93 07/29/21 07:36 07/28/21 07/29/21 07/29/21 22:59 06:59 14:59 Intake Total 240 / 640 Output Total 70 / 70 Balance 240 / 640 -70 / 570 Physical Exam Narrative: General: Alert oriented x3, no acute distress. Mood and affect are appropriate. Responses are adequate. Skin is warm and dry. Moist mucous membranes. HEENT: Normocephalic, atraumatic, EOMI, breathing normally. Cardio: Regular rate rhythm, normal S1-S2, no murmurs_ Respiratory: Good bilateral air entry, no wheezes no rhonchi appreciated GI: Abdomen soft, nontender, nondistended, bowel sounds + Behavior: Appropriate and cooperative Extremities: No lower extremity edema noted. No calf tenderness. No cyanosis. Neuro: Mild left-sided facial droop present, no issues with tracking, visual gregg are okay. Awake alert and follows directions. Upper extremity strength 5 out of 5 right, 3 out of 5 on the left side. Left lower extremity weak 4 out of 5, right lower extremity 4 out of 5. She does require assistance. Data : 07/27/21 05:21 07/27/21 05:21 A&P Assessment and plan (1) CVA (cerebral vascular accident): Status: Acute (2) Strain of tendon of lower extremity: Status: Acute Qualifiers: Encounter type: initial encounter Laterality: left Qualified Code(s): S86.912A - Strain of unspecified muscle(s) and tendon(s) at lower leg level, left leg, initial encounter (3) Diabetes: Status: Acute Qualifiers: Diabetes mellitus type: type 2 Diabetes mellitus continuous churn buttermaker insulin use: with usp use Diabetes mellitus complication status: with hyperglycemia Qualified Code(s): E11.65 - Type 2 diabetes mellitus with hyperglycemia; Z79.4 - manager long term care (current) use of insulin (4) Hypertension: Status: Acute Qualifiers: Hypertension type: essential hypertension Qualified Code(s): I10 - Essential (primary) hypertension (5) Hypercholesteremia: Status: Acute Plan #CVA, recently diagnosed July 23, 2021. #Patient presented with left-sided weakness and a fall. #History of epilepsy #History of grade 1 diastolic dysfunction #Diabetes mellitus #Hyperlipidemia #Hypertension #Obesity ? Patient's left-sided weakness and difficulty swallowing are most like an extension of her CVA that was diagnosed 5 days ago. Patient was sent home on aspirin and Plavix. She did had a fall at home and was brought to the hospital. Patient is weaker on the left side. She would like to go to a nursing home facility. Patient had a complete work-up done previous admission [address] head and neck, head CT, head MRI were completed. ? Patient is pending placement ? Continue home medications for the rest of medical issues. ? Continue to work with physical therapy/OT CODE STATUS: Limited resuscitation DVT prophylaxis bilateral SCD, [place] Left-sided weakness, aphasia and dysphagia secondary to recent CVA. Continuing dual antiplatelet therapy. Plavix for total of 21 days. Continuing statin. Continue PT OT. Pending placement to nursing home facility. Continuing aspiration precautions. Diabetes. Continue current maintenance insulin and sliding scale insulin. Hypertension. Currently well controlled. Continue current management. Dyslipidemia. Statin. DVT prophylaxis. Dual antiplatelet therapy. Encourage physical therapy and ambulation. SCDs. High risk for hemorrhagic conversion with addition of anticoagulation. The plan of care was discussed with the patient. She verbalized understanding and agreement. Discussed with multidisciplinary team. Attestations Medical Necessity Statement*: The patient is stable. Pending placement to nursing home facility. 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
--- NOTE | 2021-07-29 10:48 | PC.SOCIAL ---
IMM Update Pg. 2 of IMM updated and reviewed with patient, who verbalized understanding. Copy provided.
[2021-07-29 11:38] LABS: Glucose Point of Care 272 mg/dL (70-110)
[2021-07-29 18:00] LABS: Glucose Point of Care 223 mg/dL (70-110)
[2021-07-29 21:02] LABS: Glucose Point of Care 184 mg/dL (70-110)
[2021-07-29] MEDS: atorvastatin 40 mg Tablet 80 MG PO (21:04)
[2021-07-30] VITALS (10 sets, daily range): BP systolic 111–165; BP diastolic 61–79; PULSE 61–80; RESP 13–18; TEMP 36.6–36.9; O2SAT 75–95
[2021-07-30 06:00] LABS: Basophils % 0.3 %; Eosinophils # 0.3 10^3/uL (0.0-0.8); Eosinophils % 3.3 %; Hematocrit 46.1 % (37.0-47.0); Hemoglobin 14.8 g/dL (11.5-15.3); Lymphocytes # 2.2 10^3/uL (0.8-4.8); Mean Corpuscular HGB Conc 32.1 g/dL (30.0-36.0); Mean Corpuscular Hemoglobin 30.1 pg (28.0-34.0); Mean Corpuscular Volume 93.9 fl (81-99); Mean Platelet Volume 9.3 fL (7.4-10.4); Monocytes # 0.7 10^3/uL (0.2-0.9); Monocytes % 7.8 %; Neutrophils # 5.51 10^3/uL (1.8-7.7); Neutrophils % 63.3 %; Nucleated Red Blood Cells % 0 %; Platelet Count 253 10^3/cmm (130-400); Red Blood Count 4.91 10^6/uL (4.1-5.3); Red Cell Distribution Width 11.9 % (12.1-15.1); White Blood Count 8.7 10^3/uL (4.0-10.0)
[2021-07-30 06:29] LABS: Glucose Point of Care 189 mg/dL (70-110)
[2021-07-30 06:30] LABS: Albumin Level 3.3 g/dL (3.5-5.2); Anion Gap 13.7 (5-19); Blood Urea Nitrogen 16 mg/dL (8-23); Calcium 9.2 mg/dL (8.5-10.5); Carbon Dioxide 30 mmol/L (22-29); Chloride 102 mmol/L (98-107); Glomerular Filtration Rate 122.7 mL/min (90-130); Glucose 186 mg/dL (65-115); Magnesium 1.8 mg/dL (1.7-2.3); Phosphorus 3.6 mg/dL (2.5-4.5); Potassium 3.7 mmol/L (3.5-5.1); Sodium 142 mmol/L (136-145)
[2021-07-30] MEDS: aspirin 81 mg EC Tablet PO (09:59)
[2021-07-30] MEDS: clopidogrel 75 mg Tablet PO (09:59)
[2021-07-30] MEDS: lisinopril 10 mg Tablet PO (09:59)
[2021-07-30] MEDS: insulin lispro 100 unit/1 mL SUBCUT ×4 (10:01→21:26)
[2021-07-30] MEDS: atenolol 50 mg Tablet PO (10:02)
--- NOTE | 2021-07-30 10:37 | P.PN_ITS ---
Subjective Subjective: No significant changes or events. Patient reports doing okay. No active complaints. Reports left upper extremity weakness and some speech difficulties, without changes. Denies choking, cough, aspirations. No fever or chills. No shortness of breath. No headache. No nausea or vomiting. Medications: Medication Review Details: Generic Name Dose Route Start Last Admin Trade Name Jodi PRN Reason Stop Dose Admin Aspirin 81 mg 07/26/21 09:00 07/30/21 09:59 Aspirin 81 Mg Ec Tablet PO 81 mg DAILY IVETTE Administration Atenolol 50 mg 07/28/21 09:00 07/30/21 10:02 Atenolol 50 Mg T ablet PO 50 mg DAILY IVETTE Administration Atorvastatin Calci um 80 mg 07/26/21 21:00 07/29/21 21:04 Atorvastatin 40 Mg Tablet PO 80 mg BEDTIME IVETTE Administration Clopidogrel Bisulf ate 75 mg 07/26/21 09:00 07/30/21 09:59 Clopidogrel 75 M g Tablet PO 75 mg DAILY IVETTE Administration Insulin Detemir 52 unit 07/30/21 09:00 07/30/21 10:00 Insulin Detemir 100 Units/1 Ml SUBCUT 52 unit BID IVETTE Administration Insulin Human Lisp ro 0 unit 07/26/21 08:00 07/30/21 10:01 Insulin Lispro 1 00 Unit/1 Ml SUBCUT 4 unit WM&BEDTIME IVETTE Administration Protocol Lisinopril 10 mg 07/29/21 09:00 07/30/21 09:59 Lisinopril 10 Mg Tablet PO 10 mg DAILY IVETTE Administration Vitals/I&O/Wt Last Vital Signs Temp 98.2 F 07/30/21 07:11 Pulse 75 07/30/21 07:11 Resp 13 07/30/21 07:11 BP 135/75 07/30/21 07:11 Pulse Ox 94 07/30/21 07:11 07/29/21 07/30/21 07/30/21 22:59 06:59 14:59 Intake Total 710 / 1130 240 / 1370 Output Total 300 / 300 Balance 710 / 1130 -60 / 1070 Physical Exam Narrative: General: Alert oriented x3, no acute distress. Mood and affect are appropriate. Responses are adequate. Skin is warm and dry. Moist mucous membranes. HEENT: Normocephalic, atraumatic, EOMI, breathing normally. Cardio: Regular rate rhythm, normal S1-S2, no murmurs_ Respiratory: Good bilateral air entry, no wheezes no rhonchi appreciated GI: Abdomen soft, nontender, nondistended, bowel sounds + Behavior: Appropriate and cooperative Extremities: No lower extremity edema noted. No calf tenderness. No cyanosis. Neuro: Mild left-sided facial droop present, no issues with tracking, visual gregg are okay. Awake alert and follows directions. Upper extremity strength 5 out of 5 right, 3 out of 5 on the left side. Left lower extremity weak 4 out of 5, right lower extremity 4 out of 5. She does require assistance. Data : 07/30/21 05:42 07/30/21 05:42 Micro: Microbiology 07/28/21 18:00 C.difficile Toxin B Gene (PCR) - Final Stool - Stool Aspirate A&P Assessment and plan (1) CVA (cerebral vascular accident): Status: Acute (2) Strain of tendon of lower extremity: Status: Acute Qualifiers: Encounter type: initial encounter Laterality: left Qualified Code(s): S86.912A - Strain of unspecified muscle(s) and tendon(s) at lower leg level, left leg, initial encounter (3) Diabetes: Status: Acute Qualifiers: Diabetes mellitus type: type 2 Diabetes mellitus exterminator termite insulin use: with exterminator termite use Diabetes mellitus complication status: with hyperglycemia Qualified Code(s): E11.65 - Type 2 diabetes mellitus with hyperglycemia; Z79.4 - assisted (current) use of insulin (4) Hypertension: Status: Acute Qualifiers: Hypertension type: essential hypertension Qualified Code(s): I10 - Essential (primary) hypertension (5) Hypercholesteremia: Status: Acute Plan #CVA, recently diagnosed July 23, 2021. #Patient presented with left-sided weakness and a fall. #History of epilepsy #History of grade 1 diastolic dysfunction #Diabetes mellitus #Hyperlipidemia #Hypertension #Obesity ? Patient's left-sided weakness and difficulty swallowing are most like an extension of her CVA that was diagnosed 5 days ago. Patient was sent home on aspirin and Plavix. She did had a fall at home and was brought to the hospital. Patient is weaker on the left side. She would like to go to a care home facility. Patient had a complete work-up done previous admission [address] head and neck, head CT, head MRI were completed. ? Patient is pending placement ? Continue home medications for the rest of medical issues. ? Continue to work with physical therapy/OT CODE STATUS: Limited resuscitation DVT prophylaxis bilateral SCD, [place] Left-sided weakness, aphasia and dysphagia secondary to recent CVA. Continuing dual antiplatelet therapy. Plavix for total of 21 days. Continuing statin. Continue PT OT. Pending placement to care home facility. Continuing aspiration precautions. Diabetes. Blood sugar levels are still higher than the goal. We will increase Lantus dose slightly and continue further adjustments as needed. Insulin sliding scale. Hypertension. Currently well controlled. Continue current management. Dyslipidemia. Statin. DVT prophylaxis. Dual antiplatelet therapy. Encourage physical therapy and ambulation. SCDs. High risk for hemorrhagic conversion with addition of anticoagulation. The plan of care was discussed with the patient. She verbalized understanding and agreement. Discussed with multidisciplinary team. Attestations Medical Necessity Statement*: Pending placement to care home facility. Waiting for insurance authorization. 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
[2021-07-30 11:23] LABS: Glucose Point of Care 282 mg/dL (70-110)
--- NOTE | 2021-07-30 11:58 | CT_ITS ---
WS: [id number] CT HEAD TECHNIQUE: Noncontrast CT of the head obtained from the skullbase to the vertex. CLINICAL INFORMATION: repeat stroke COMPARISON: CT July 26, 2021 and MRI July 24, 2021 DLP: 893.[address] scans at [facility] use at least one of these dose optimization techniques: automated e xposure control; mA and/or kV adjustment per patient size (includes targeted exams where dose is matc hed to clinical indication); or iterative reconstruction. FINDINGS: Again seen is the evolving subacute infarct in the RIGHT centrum semiovale more prominent compared to July 26, 2021 today measuring 3.1 x 2.1 CM. Mild localized edema. Minimal mass effect on the RIGHT lateral ventricle. No significant midline shift. No hydrocephalus. No hemorrhage. Additional smaller subacute infarcts in the RIGHT haas radiata and periventricular white matter are similar in appeara nce. Chronic lacunar infarcts in the LEFT periventricular white matter and haas radiata. Small Amount o f fluid in the maxillary sinuses. Mastoid air cells are well aerated. CT/CT head wo con* [id number] IMPRESSION: 1. No evidence of intracranial hemorrhage 2. Evolving low-attenuation infarct in the RIGHT centrum semiovale today measu ring 3.1 x 2.1 cm slightly increased in size compared to the prior examinations . 3. Tiny subacute infarcts in the RIGHT haas radiata and periventricular whit e matter better seen on the recent MRI. 4. Chronic lacunar infarcts in the LEFT haas radiata and periventricular whi te matter unchanged. 5. Trace fluid in the maxillary sinuses bilaterally.
--- NOTE | 2021-07-30 14:29 | PC.NURSE ---
Patient showing signs in the AM of more weakness than normal and incontinent episode compared to previously being continent during awake hours. More slurred speech and more prominent facial drooping. Physician was notified and orders placed and tests done and read. Please see Report.
[2021-07-30 15:55] LABS: SARS Covid-2 Antigen Negative (Negative)
--- NOTE | 2021-07-30 16:59 | PC.NURSE ---
Addendum entered by Rita Lawrence RN 07/30/21 18:50: Got orders for rash relief from physician. Petechia continues to disburse down BLE and up trunk. Original Note: Patient resting in bed, continues to c/o the discomfort and itching to her back. Lotion not working and requesting something else.
[2021-07-30 17:59] LABS: Glucose Point of Care 202 mg/dL (70-110)
[2021-07-30] MEDS: fluticasone nasal spray 16gm Btl 1 SPRAY NASAL (18:11)
[2021-07-30 20:55] LABS: Glucose Point of Care 176 mg/dL (70-110)
[2021-07-30] MEDS: atorvastatin 40 mg Tablet 80 MG PO (21:26)
[2021-07-31] VITALS (8 sets, daily range): BP systolic 108–145; BP diastolic 58–85; PULSE 68–80; RESP 13–18; TEMP 36.5–36.8; O2SAT 93–96
[2021-07-31 00:14] LABS: Rubella IgG 0.2 IU/mL (0.0-10.0)
--- NOTE | 2021-07-31 06:40 | PC.NURSE ---
Patient transferred up into chair at this time. Two person moderate assist due to left sided weakness. Pillows placed under bilateral arms once up in chair. Patient tolerated activity well, denies pain at this time.
[2021-07-31 06:42] LABS: Glucose Point of Care 140 mg/dL (70-110)
[2021-07-31] MEDS: aspirin 81 mg EC Tablet PO (09:15)
[2021-07-31] MEDS: clopidogrel 75 mg Tablet PO (09:15)
[2021-07-31] MEDS: atenolol 50 mg Tablet 25 MG PO (09:16)
--- NOTE | 2021-07-31 09:23 | PC.SOCIAL ---
Addendum entered by Antonette Christie RN 07/31/21 10:26: Pg 2 of [facility] updated w/ patients son Joey and Sig Other Mansoor. Both returned call and copy gave to nurse Constance to place in room and copy in chart updated. Original Note: IMM Update pg 2 of [facility] not updated @ this time. Attempted to call patients room, no answer. Attempted to all both contacts Thom & Mansoor, no answer and unable to leave message.
--- NOTE | 2021-07-31 11:05 | PM.PN ---
Subjective Subjective: The patient developed macular rash on the back and lower abdomen and thighs. It is itchy. No fever or chills. No shortness of breath, cough, upper respiratory symptoms. The weakness is unchanged on the left side. No confusion or disorientation. Medications: Medication Review Details: Generic Name Dose Route Start Last Admin Trade Name Freq PRN Reason Stop Dose Admin Aspirin 81 mg 07/26/21 09:00 07/31/21 09:15 Aspirin 81 Mg Ec Tablet PO 81 mg DAILY IVETTE Administration Atenolol 25 mg 07/31/21 09:00 07/31/21 09:16 Atenolol 50 Mg T ablet PO 25 mg DAILY IVETTE Administration Atorvastatin Calci um 80 mg 07/26/21 21:00 07/30/21 21:26 Atorvastatin 40 Mg Tablet PO 80 mg BEDTIME IVETTE Administration Clopidogrel Bisulf ate 75 mg 07/26/21 09:00 07/31/21 09:15 Clopidogrel 75 M g Tablet PO 75 mg DAILY IVETTE Administration Fluticasone Propio joss 1 spray 07/30/21 18:00 07/31/21 09:18 Fluticasone Nasa l [place] 16gm Btl NASAL Not Given BID IVETTE Hydrocortisone 1 applic 07/30/21 17:18 07/31/21 02:15 Hydrocortisone 0 .5% Cream 28 Gm TOPICAL 1 applic QID PRN Administration RASH Insulin Detemir 52 unit 07/30/21 09:00 07/31/21 09:17 Insulin Detemir 100 Units/1 Ml SUBCUT 52 unit BID IVETTE Administration Insulin Human Lisp ro 0 unit 07/26/21 08:00 07/31/21 08:01 Insulin Lispro 1 00 Unit/1 Ml SUBCUT Not Given WM&BEDTIME [facility] Protocol Lisinopril 10 mg 07/29/21 09:00 07/30/21 09:59 Lisinopril 10 Mg Tablet PO 10 mg DAILY IVETTE Administration Vitals/I&O/Wt Last Vital Signs Temp 97.9 F 07/31/21 10:55 Pulse 68 07/31/21 10:55 Resp 18 07/31/21 10:55 BP 108/58 07/31/21 10:55 Pulse Ox 95 07/31/21 10:55 07/30/21 07/31/21 07/31/21 22:59 06:59 14:59 Intake Total 700 / 1050 240 / 1290 Balance 700 / 1050 240 / 1290 Physical Exam Narrative: General: Alert oriented x3, no acute distress. Mood and affect are appropriate. Responses are adequate. Skin is warm and dry. There is a macular rash on the back and lower abdomen and thighs. Moist mucous membranes. HEENT: Normocephalic, atraumatic, EOMI, breathing normally. Cardio: Regular rate rhythm, normal S1-S2, no murmurs_ Respiratory: Good bilateral air entry, no wheezes no rhonchi appreciated GI: Abdomen soft, nontender, nondistended, bowel sounds + Behavior: Appropriate and cooperative Extremities: No lower extremity edema noted. No calf tenderness. No cyanosis. Neuro: Mild left-sided facial droop present, no issues with tracking, visual gregg are okay. Awake alert and follows directions. Upper extremity strength 5 out of 5 right, 2-3 out of 5 on the left side. There is mild weakness in the left lower extremity. Right lower extremity seems to be 5/5. Data : 07/30/21 05:42 07/30/21 05:42 A&P Assessment and plan (1) CVA (cerebral vascular accident): Status: Acute (2) Strain of tendon of lower extremity: Status: Acute Qualifiers: Encounter type: initial encounter Laterality: left Qualified Code(s): S86.912A - Strain of unspecified muscle(s) and tendon(s) at lower leg level, left leg, initial encounter (3) Diabetes: Status: Acute Qualifiers: Diabetes mellitus type: type 2 Diabetes mellitus fdc insulin use: with assistant terminal manager use Diabetes mellitus complication status: with hyperglycemia Qualified Code(s): E11.65 - Type 2 diabetes mellitus with hyperglycemia; Z79.4 - termite helper (current) use of insulin (4) Hypertension: Status: Acute Qualifiers: Hypertension type: essential hypertension Qualified Code(s): I10 - Essential (primary) hypertension (5) Hypercholesteremia: Status: Acute Plan #CVA, recently diagnosed July 23, 2021. #Patient presented with left-sided weakness and a fall. #History of epilepsy #History of grade 1 diastolic dysfunction #Diabetes mellitus #Hyperlipidemia #Hypertension #Obesity ? Patient's left-sided weakness and difficulty swallowing are most like an extension of her CVA that was diagnosed 5 days ago. Patient was sent home on aspirin and Plavix. She did had a fall at home and was brought to the hospital. Patient is weaker on the left side. She would like to go to a fpc facility. Patient had a complete work-up done previous admission [address] head and neck, head CT, head MRI were completed. ? Patient is pending placement ? Continue home medications for the rest of medical issues. ? Continue to work with physical therapy/OT CODE STATUS: Limited resuscitation DVT prophylaxis bilateral SCD, [place] Left-sided weakness, aphasia and dysphagia secondary to recent CVA. Continuing dual antiplatelet therapy. Plavix for total of 21 days. Continuing statin. Continue PT OT. Pending placement to fpc facility. Continuing aspiration precautions. Macular rash. She was in the same room where there was a patient who was later diagnosed with measles. She is on isolation now. Measles test is sent and pending. Her antibody testing was negative. Diabetes. Continue adjusted dose of Lantus and insulin sliding scale. Hypertension. Yesterday I decreased blood pressure medications a little bit to allow slightly higher blood pressure for improved perfusion of the brain. Blood pressure is well controlled currently. Dyslipidemia. Statin. DVT prophylaxis. Dual antiplatelet therapy. Encourage physical therapy and ambulation. SCDs. High risk for hemorrhagic conversion with addition of anticoagulation. The plan of care was discussed with the patient. She verbalized understanding and agreement. Discussed with multidisciplinary team. Attestations Medical Necessity Statement*: Due to high suspicion for measles the patient is on isolation. Follow-up confirmatory test is pending. We are waiting for the placement. 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
[2021-07-31 11:52] LABS: Glucose Point of Care 245 mg/dL (70-110)
[2021-07-31 17:21] LABS: Glucose Point of Care 276 mg/dL (70-110)
[2021-07-31] MEDS: insulin lispro 100 unit/1 mL SUBCUT ×2 (17:23→20:38)
[2021-07-31] MEDS: fluticasone nasal spray 16gm Btl 1 SPRAY NASAL (17:23)
[2021-07-31 20:31] LABS: Glucose Point of Care 210 mg/dL (70-110)
[2021-07-31] MEDS: atorvastatin 40 mg Tablet 80 MG PO (20:38)
[2021-08-01] VITALS (12 sets, daily range): BP systolic 109–169; BP diastolic 64–81; PULSE 63–88; RESP 16–18; TEMP 36.5–36.9; O2SAT 92–96
--- NOTE | 2021-08-01 05:22 | PC.NURSE ---
PATIENT RESTED COMFORTABLY IN BED THROUGHOUT THE NIGHT. ALERT AND ORIENTED, VSS. PATIENT HAD NO COMPLAINTS OF PAIN OR DISCOMFORT VOICED. PATIENT HAD COMPLAINTS OF ITCHING TO HER TORSO/BACK AND ARMS- HYDROCORTISONE CREAM APPLIED. PATIENT INCONT OF URINE THIS SHIFT. NECTAR THICKEN LIQUIDS TOLERATED WELL. LEFT ARM REMAINS FLACCID AND LEFT LEG REMAINS WEAK. REPOSITIONED THROUGHOUT THE NIGHT. RESTING COMFORTABLY IN BED AT THIS TIME, CALL LIGHT WITHIN REACH. NO DISTRESS.
[2021-08-01 06:18] LABS: Glucose Point of Care 184 mg/dL (70-110)
[2021-08-01] MEDS: aspirin 81 mg EC Tablet PO (09:24)
[2021-08-01] MEDS: insulin lispro 100 unit/1 mL SUBCUT ×4 (09:24→21:10)
[2021-08-01] MEDS: clopidogrel 75 mg Tablet PO (09:24)
[2021-08-01] MEDS: atenolol 50 mg Tablet 25 MG PO (09:24)
[2021-08-01] MEDS: fluticasone nasal spray 16gm Btl 1 SPRAY NASAL ×2 (09:25→17:16)
--- NOTE | 2021-08-01 10:15 | P.PN_ITS ---
Subjective Subjective: Patient's current condition, complaints, physical examination findings were discussed with patient's nurse and multidisciplinary team. No significant changes since yesterday. Unchanged rash. Unchanged left-sided weakness. No active complaints. Eating and drinking well. Physical therapy is going well. No fever or chills, no pain. Medications: Medication Review Details: Generic Name Dose Route Start Last Admin Trade Name Bijuq PRN Reason Stop Dose Admin Aspirin 81 mg 07/26/21 09:00 08/01/21 09:24 Aspirin 81 Mg Ec Tablet PO 81 mg DAILY IVETTE Administration Atenolol 25 mg 07/31/21 09:00 08/01/21 09:24 Atenolol 50 Mg T ablet PO 25 mg DAILY IVETTE Administration Atorvastatin Calci um 80 mg 07/26/21 21:00 07/31/21 20:38 Atorvastatin 40 Mg Tablet PO 80 mg BEDTIME IVETTE Administration Clopidogrel Bisulf ate 75 mg 07/26/21 09:00 08/01/21 09:24 Clopidogrel 75 M g Tablet PO 75 mg DAILY IVETTE Administration Fluticasone Propio joss 1 spray 07/30/21 18:00 08/01/21 09:25 Fluticasone Nasa l [place] 16gm Btl NASAL 1 spray BID IVETTE Administration Hydrocortisone 1 applic 07/30/21 17:18 07/31/21 20:49 Hydrocortisone 0 .5% Cream 28 Gm TOPICAL 1 applic QID PRN Administration RASH Insulin Detemir 55 unit 08/01/21 09:00 08/01/21 10:03 Insulin Detemir 100 Units/1 Ml SUBCUT 55 unit BID IVETTE Administration Insulin Human Lisp ro 0 unit 07/26/21 08:00 08/01/21 09:24 Insulin Lispro 1 00 Unit/1 Ml SUBCUT 6 unit WM&BEDTIME IVETTE Administration Protocol Lisinopril 10 mg 07/29/21 09:00 07/30/21 09:59 Lisinopril 10 Mg Tablet PO 10 mg DAILY IVETTE Administration Vitals/I&O/Wt Last Vital Signs Temp 98.5 F 08/01/21 08:00 Pulse 88 08/01/21 08:00 Resp 16 08/01/21 08:00 BP 151/78 08/01/21 08:00 Pulse Ox 93 08/01/21 07:38 04/21/22 04/22/22 04/22/22 22:59 06:59 14:59 Intake Total 50 / 290 200 / 490 120 / 120 Balance 50 / 290 200 / 490 120 / 120 Physical Exam Narrative: General: Alert oriented x3, no acute distress. Mood and affect are appropriate. Responses are adequate. Skin is warm and dry. Unchanged spreading and intensity of the rash. Moist mucous membranes. Respiratory: No respiratory distress GI: Soft and nontender. Behavior: Appropriate and cooperative Extremities:No cyanosis. 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 #Patient presented with left-sided weakness and a fall. #History of epilepsy #History of grade 1 diastolic dysfunction #Diabetes mellitus #Hyperlipidemia #Hypertension #Obesity ? Patient's left-sided weakness and difficulty swallowing are most like an extension of her CVA that was diagnosed 5 days ago. Patient was sent home on aspirin and Plavix. She did had a fall at home and was brought to the hospital. Patient is weaker on the left side. She would like to go to a alf facility. Patient had a complete work-up done previous admission [address] head and neck, head CT, head MRI were completed. ? Patient is pending placement ? Continue home medications for the rest of medical issues. ? Continue to work with physical therapy/OT CODE STATUS: Limited resuscitation DVT prophylaxis bilateral SCD, [place] Left-sided weakness, aphasia and dysphagia secondary to recent CVA. Continuing dual antiplatelet therapy. Plavix for total of 21 days. Continuing statin. Co ntinue PT OT. Pending placement to alf facility. Continuing aspiration precautions. Macular rash. She was in the same room where there was a patient who was later diagnosed with measles. She is on isolation now. Measles test is sent and pending. Her antibody testing was negative. Diabetes. Continue adjusted dose of Lantus and insulin sliding scale. Hypertension. Yesterday I decreased blood pressure medications a little bit to allow slightly higher blood pressure for improved perfusion of the brain. Blood pressure is well controlled currently. Dyslipidemia. Statin. DVT prophylaxis. Dual antiplatelet therapy. Encourage physical therapy and ambulation. SCDs. High risk for hemorrhagic conversion with addition of anticoagulation. Discussed with multidisciplinary team. 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
[2021-08-01 11:48] LABS: Glucose Point of Care 244 mg/dL (70-110)
[2021-08-01 16:51] LABS: Glucose Point of Care 174 mg/dL (70-110)
[2021-08-01 20:51] LABS: Glucose Point of Care 152 mg/dL (70-110)
[2021-08-01] MEDS: atorvastatin 40 mg Tablet 80 MG PO (21:10)
--- NOTE | 2021-08-01 23:22 | PC.NURSE ---
Patient resting in bed with eyes closed. Patient stirred slightly in bed when nurse entered room but did not awaken.
[2021-08-02] VITALS (8 sets, daily range): BP systolic 115–154; BP diastolic 66–76; PULSE 66–93; RESP 16–18; TEMP 36.7–36.8; O2SAT 92–97
[2021-08-02 06:35] LABS: Glucose Point of Care 146 mg/dL (70-110)
[2021-08-02] MEDS: lisinopril 10 mg Tablet PO (09:05)
[2021-08-02] MEDS: atenolol 50 mg Tablet 25 MG PO (09:05)
[2021-08-02] MEDS: aspirin 81 mg EC Tablet PO (09:05)
[2021-08-02] MEDS: clopidogrel 75 mg Tablet PO (09:06)
[2021-08-02] MEDS: insulin lispro 100 unit/1 mL SUBCUT ×4 (09:08→22:33)
--- NOTE | 2021-08-02 09:14 | PC.SOCIAL ---
IMM Update Pg. 2 of IMM updated and reviewed with patient, who verbalized understanding.
--- NOTE | 2021-08-02 11:09 | P.PN_ITS ---
Subjective Subjective: The patient reports feeling better. No changes in the muscle weakness. However the rash has resolved. Denies fever or chills. No chest pain, shortness of breath, cough, palpitations. No runny nose or sore throat. No diarrhea. Medications: Medication Review Details: Generic Name Dose Route Start Last Admin Trade Name Freq PRN Reason Stop Dose Admin Aspirin 81 mg 07/26/21 09:00 08/02/21 09:05 Aspirin 81 Mg Ec Tablet PO 81 mg DAILY IVETTE Administration Atenolol 25 mg 07/31/21 09:00 08/02/21 09:05 Atenolol 50 Mg T ablet PO 25 mg DAILY IVETTE Administration Atorvastatin Calci um 80 mg 07/26/21 21:00 08/01/21 21:10 Atorvastatin 40 Mg Tablet PO 80 mg BEDTIME IVETTE Administration Clopidogrel Bisulf ate 75 mg 07/26/21 09:00 08/02/21 09:06 Clopidogrel 75 M g Tablet PO 75 mg DAILY IVETTE Administration Fluticasone Propio joss 1 spray 07/30/21 18:00 08/01/21 17:16 Fluticasone Nasa l Maxwell 16gm Btl NASAL 1 spray BID IVETTE Administration Hydrocortisone 1 applic 07/30/21 17:18 07/31/21 20:49 Hydrocortisone 0 .5% Cream 28 Gm TOPICAL 1 applic QID PRN Administration RASH Insulin Detemir 55 unit 08/01/21 09:00 08/02/21 09:06 Insulin Detemir 100 Units/1 Ml SUBCUT 55 unit BID IVETTE Administration Insulin Human Lisp ro 0 unit 07/26/21 08:00 08/02/21 09:08 Insulin Lispro 1 00 Unit/1 Ml SUBCUT 2 unit WM&BEDTIME IVETTE Administration Protocol Lisinopril 10 mg 07/29/21 09:00 08/02/21 09:05 Lisinopril 10 Mg Tablet PO 10 mg DAILY IVETTE Administration Vitals/I&O/Wt Last Vital Signs Temp 98.3 F 08/02/21 08:00 Pulse 81 08/02/21 08:00 Resp 18 08/02/21 08:00 BP 115/66 08/02/21 08:00 Pulse Ox 97 08/02/21 08:00 08/01/21 08/02/21 08/02/21 22:59 06:59 14:59 Intake Total 420 / 660 600 / 1260 120 / 120 Output Total 600 / 600 Balance 420 / 660 0 / 660 120 / 120 Physical Exam Narrative: General: Alert oriented x3, no acute distress. Mood and affect are appropriate. Responses are adequate. Skin is warm and dry. No rash. Moist mucous membranes. Respiratory: No respiratory distress. Clear bilaterally. GI: Soft and nontender. Bowel sounds are present Behavior: Appropriate and cooperative Extremities:No cyanosis. Neuro: Unchanged left-sided weakness Data : 07/30/21 05:42 07/30/21 05:42 A&P Assessment and plan (1) CVA (cerebral vascular accident): Status: Acute (2) Strain of tendon of lower extremity: Status: Acute Qualifiers: Encounter type: initial encounter Laterality: left Qualified Code(s): S86.912A - Strain of unspecified muscle(s) and tendon(s) at lower leg level, left leg, initial encounter (3) Diabetes: Status: Acute Qualifiers: Diabetes mellitus type: type 2 Diabetes mellitus group home insulin use: with intermediate project manager use Diabetes mellitus complication status: with hyperglycemia Qualified Code(s): E11.65 - Type 2 diabetes mellitus with hyperglycemia; 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 #Patient presented with left-sided weakness and a fall. #History of epilepsy #History of grade 1 diastolic dysfunction #Diabetes mellitus #Hyperlipidemia #Hypertension #Obesity ? Patient's left-sided weakness and difficulty swallowing are most like an extension of her CVA that was diagnosed 5 days ago. Patient was sent home on aspirin and Plavix. She did had a fall at home and was brought to the hospital. Patient is weaker on the left side. She would like to go to a [place] [facility] facility. Patient had a complete work-up done previous admission [address] head and neck, head CT, head MRI were completed. ? Patient is pending placement ? Continue home medications for the rest of medical issues. ? Continue to work with physical therapy/OT CODE STATUS: Limited resuscitation DVT prophylaxis bilateral SCD, [place] Left-sided weakness, aphasia and dysphagia secondary to recent CVA. Continuing dual antiplatelet therapy. Plavix for total of 21 days. Continuing statin. Continue PT OT. Pending placement to [facility]. Continuing aspiration precautions. Macular rash. Resolved. She was in the same room where there was a patient who was later diagnosed with measles. She is on isolation now. Measles test is sent and pending. Her antibody testing was negative. Diabetes. Improved glycemia. Continue adjusted dose of Lantus and insulin sliding scale. Hypertension. Well-controlled. Continue current management. Dyslipidemia. Statin. DVT prophylaxis. Dual antiplatelet therapy. Encourage physical therapy and am bulation. SCDs. High risk for hemorrhagic conversion with addition of anticoagulation. Discussed with multidisciplinary team. 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
[2021-08-02 11:11] LABS: Glucose Point of Care 217 mg/dL (70-110)
[2021-08-02 17:08] LABS: Glucose Point of Care 173 mg/dL (70-110)
[2021-08-02 22:12] LABS: Glucose Point of Care 201 mg/dL (70-110)
[2021-08-02] MEDS: atorvastatin 40 mg Tablet 80 MG PO (22:32)
[2021-08-03] VITALS (12 sets, daily range): BP systolic 118–142; BP diastolic 70–75; PULSE 60–88; RESP 18–20; TEMP 36.6–36.9; O2SAT 93–96
[2021-08-03 05:30] LABS: Basophils # 0.1 10^3/uL (0.0-0.1); Basophils % 0.7 %; Eosinophils # 0.3 10^3/uL (0.0-0.8); Eosinophils % 3.5 %; Hematocrit 44.8 % (37.0-47.0); Hemoglobin 14.5 g/dL (11.5-15.3); Lymphocytes # 2.1 10^3/uL (0.8-4.8); Lymphocytes % 25.2 %; Mean Corpuscular HGB Conc 32.4 g/dL (30.0-36.0); Mean Corpuscular Hemoglobin 30.3 pg (28.0-34.0); Mean Corpuscular Volume 93.7 fl (81-99); Mean Platelet Volume 9.4 fL (7.4-10.4); Monocytes # 0.8 10^3/uL (0.2-0.9); Monocytes % 9.2 %; Neutrophils # 5.06 10^3/uL (1.8-7.7); Nucleated Red Blood Cells % 0 %; Platelet Count 230 10^3/cmm (130-400); Red Blood Count 4.78 10^6/uL (4.1-5.3); Red Cell Distribution Width 11.8 % (12.1-15.1); White Blood Count 8.3 10^3/uL (4.0-10.0)
[2021-08-03 05:52] LABS: Albumin Level 3.3 g/dL (3.5-5.2); Anion Gap 10.6 (5-19); Blood Urea Nitrogen 14 mg/dL (8-23); Calcium 8.2 mg/dL (8.5-10.5); Carbon Dioxide 27 mmol/L (22-29); Chloride 101 mmol/L (98-107); Glomerular Filtration Rate 158.7 mL/min (90-130); Glucose 130 mg/dL (65-115); Magnesium 1.9 mg/dL (1.7-2.3); Phosphorus 3.1 mg/dL (2.5-4.5); Potassium 3.6 mmol/L (3.5-5.1); Sodium 135 mmol/L (136-145)
[2021-08-03 07:07] LABS: Glucose Point of Care 137 mg/dL (70-110)
[2021-08-03] MEDS: clopidogrel 75 mg Tablet PO (08:20)
[2021-08-03] MEDS: aspirin 81 mg EC Tablet PO (08:20)
[2021-08-03] MEDS: lisinopril 10 mg Tablet PO (08:20)
[2021-08-03] MEDS: fluticasone nasal spray 16gm Btl 1 SPRAY NASAL ×2 (08:20→18:58)
[2021-08-03] MEDS: atenolol 50 mg Tablet 25 MG PO (08:20)
[2021-08-03 11:20] LABS: Glucose Point of Care 237 mg/dL (70-110)
[2021-08-03] MEDS: insulin lispro 100 unit/1 mL SUBCUT ×3 (12:16→20:43)
--- NOTE | 2021-08-03 14:30 | P.PN_ITS ---
Subjective Subjective: Patient's current condition, complaints, physical examination findings were discussed with patient's nurse and multidisciplinary team.? No significant changes since yesterday.? Resolving rash.? Unchanged left-sided weakness.? No active complaints.? Eating and drinking well.? Physical therapy is going well.? No fever or chills, no pain. Medications: Reviewed: Yes Vitals/I&O/Wt Last Vital Signs Temp 98.1 F 08/03/21 12:00 Pulse 82 08/03/21 12:00 Resp 19 H 08/03/21 12:00 BP 134/71 08/03/21 12:00 Pulse Ox 94 08/03/21 12:00 08/02/21 08/03/21 08/03/21 22:59 06:59 14:59 Intake Total 240 / 480 240 / 240 Balance 240 / 480 240 / 240 Physical Exam 2 Narrative: General: Alert juanjose ented x3, no acute distress.? Mood a nd affect are appr opriate.? Response s are adequate. Sk in is warm and dry .? Unchanged sprea ding and intensity of the rash. Mois t mucous membranes . Respiratory: No respiratory distre ss GI: Soft and no ntender. Behavior: Appropriate and c ooperative Extremi ties:No cyanosis. Neuro: Unchanged l eft-sided weakness Data : 08/03/21 04:45 08/03/21 04:45 A&P Assessment and plan (1) CVA (cerebral vascular accident): Status: Acute (2) Strain of tendon of lower extremity: Status: Acute Qualifiers: Encounter type: initial encounter Laterality: left Qualified Code(s): S86.912A - Strain of unspecified muscle(s) and tendon(s) at lower leg level, left leg, initial encounter (3) Diabetes: Status: Acute Qualifiers: Diabetes mellitus type: type 2 Diabetes mellitus senior care insulin use: with senior care use Diabetes mellitus complication status: with hyperglycemia Qualified Code(s): E11.65 - Type 2 diabetes mellitus with hyperglycemia; 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 #Patient presented with left-sided weakness and a fall. #History of epilepsy #History of grade 1 diastolic dysfunction #Diabetes mellitus #Hyperlipidemia #Hypertension #Obesity ? Patient's left-sided weakness and difficulty swallowing are most like an extension of her CVA that was diagnosed 5 days ago. Patient was sent home on aspirin and Plavix. She did had a fall at home and was brought to the hospital. Patient is weaker on the left side. She would like to go to a senior living facility. Patient had a complete work-up done previous admission [address] head and neck, head CT, head MRI were completed. ? Patient is pending placement ? Continue home medications for the rest of medical issues. ? Continue to work with physical therapy/OT CODE STATUS: Limited resuscitation DVT prophylaxis bilateral SCD, [place] Left-sided weakness, aphasia and dysphagia secondary to recent CVA. Continuing dual antiplatelet therapy. Plavix for total of 21 days. Continuing statin. Continue PT OT. Pending placement to senior living facility. Continuing aspiration precautions. Macular rash. Resolved. She was in the same room where there was a patient who was later diagnosed with measles. She is on isolation now. Measles test is sent and pending. Her antibody testing was negative. Diabetes. Improved glycemia. Continue adjusted dose of Lantus and insulin sliding scale. Hypertension. Well-controlled. Continue current management. Dyslipidemia. Statin. DVT prophylaxis. Dual antiplatelet therapy. Encourage physical therapy and ambulation. SCDs. High risk for hemorrhagic conversion with addition of anticoagulation. Discussed with multidisciplinary team. Attestations Medical Necessity Statement*: Pending placement Coding Level of Care Code Acute Classer for [facility] Diagnoses CVA (cerebral vascular accident) I63.9 Strain of tendon of lower extremity S86.912A Encounter type: initial encounter Laterality: left Diabetes E11.65; Z79.4 Diabetes mellitus type: type 2 Diabetes mellitus intermediate manager insulin use: with senior care use Diabetes mellitus complication status: with hyperglycemia Hypertension I10 Hypertension type: essential hypertension Hypercholesteremia E78.00
[2021-08-03 16:57] LABS: Glucose Point of Care 187 mg/dL (70-110)
[2021-08-03 20:37] LABS: Glucose Point of Care 215 mg/dL (70-110)
[2021-08-03] MEDS: atorvastatin 40 mg Tablet 80 MG PO (20:43)
[2021-08-04] VITALS (10 sets, daily range): BP systolic 97–154; BP diastolic 59–97; PULSE 62–71; RESP 16–18; TEMP 36.5–37; O2SAT 90–98
--- NOTE | 2021-08-04 04:59 | PC.NURSE ---
Voided three times throughout the night using the bedpan. All were small amounts less than 100mL.
[2021-08-04 06:28] LABS: Glucose Point of Care 137 mg/dL (70-110)
--- NOTE | 2021-08-04 07:43 | P.PN_ITS ---
Subjective Subjective: History reviewed in detail. Discussed with infection control. Timeline reviewed with nursing on floors. Patient reports she had a rash from some bath products and it went away fairly quickly. After reviewing this there was concern that patient had subsequently been placed in a room that had pr eviously been used for a patient with measles. However, the patient ultimately tested negative for measles. There was also a HEPA filter in the room, room had been cleaned, and unoccupied a day prior to this patient being placed in there. She had no other exposures, fever, or other concerns. When rash developed secondary to concern of other patient potentially having measles antibody titers were sent. These are still pending but she is now over any isolation period she would have been given. Therefore, ultimately she does not need isolation and does not need testing. This was discussed with infection control nurse as well who has been following this case. Medications: Reviewed: Yes Vitals/I&O/Wt Last Vital Signs Temp 97.8 F 08/04/21 04:00 Pulse 64 08/04/21 06:00 Resp 18 08/04/21 04:00 BP 148/79 08/04/21 04:00 Pulse Ox 94 08/04/21 04:00 08/03/21 08/04/21 08/04/21 22:59 06:59 14:59 Intake Total 240 / 480 Output Total 100 / 100 Balance 240 / 480 -100 / 380 Physical Exam Narrative: General exam is no distress Neck is supple no lymphadenopathy or thyromegaly Cardiovascular regular rate and rhythm without murmur Lungs clear Abdomen is soft with positive bowel sounds Extremities no cyanosis clubbing or edema Neuro: Left hemiparesis, left facial droop, unchanged from previous exams Data : 08/03/21 04:45 08/03/21 04:45 A&P Assessment and plan (1) CVA (cerebral vascular accident): Significant CVA causing left hemiparesis, dysphagia, with need for placement in skilled care. She is unable to take care of herself at home, established by recent fall leading to readmission. Plavix and aspirin should be continued as well as statin. Continue therapies No evidence of flow-limiting stenosis, on CTA No evidence of atrial fibrillation on telemetry Was planned to have 21-day event monitor on discharge from last hospital stay. This is still a good idea. 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 Long since resolved. Probably contact dermatitis. Concern of exposure to a patient with measles was not ultimately correct. This was confirmed with the infection control nurse. Even if the patient had had measles, isolation period would have ended yesterday. The patient has had no fever, or other concerns. The patient does not need any further measles t esting. Attestations Medical Necessity Statement*: Continue therapies, pending placement Coding Level of Care Code Acute Jet Operator for [facility] Diagnoses CVA (cerebral vascular accident) I63.9 Diabetes E11.65; Z79.4 Diabetes mellitus type: type 2 Diabetes mellitus continuous churn buttermaker insulin use: with halfway use Diabetes mellitus complication status: with hyperglycemia Hypercholesteremia E78.00 Hypertension I10 Hypertension type: essential hypertension
[2021-08-04] MEDS: atenolol 50 mg Tablet 25 MG PO (09:16)
[2021-08-04] MEDS: lisinopril 10 mg Tablet PO (09:16)
[2021-08-04] MEDS: aspirin 81 mg EC Tablet PO (09:16)
[2021-08-04] MEDS: clopidogrel 75 mg Tablet PO (09:16)
[2021-08-04 11:06] LABS: Glucose Point of Care 314 mg/dL (70-110)
[2021-08-04] MEDS: insulin lispro 100 unit/1 mL SUBCUT ×3 (11:40→21:20)
--- NOTE | 2021-08-04 12:22 | PC.SOCIAL ---
IMM update IMM updated with patient. Verbalized an understanding. Initialled, dated, timed, and placed in chart.
[2021-08-04 17:31] LABS: Glucose Point of Care 207 mg/dL (70-110)
[2021-08-04] MEDS: fluticasone nasal spray 16gm Btl 1 SPRAY NASAL (17:38)
[2021-08-04 20:49] LABS: Glucose Point of Care 214 mg/dL (70-110)
[2021-08-04] MEDS: atorvastatin 40 mg Tablet 80 MG PO (21:20)
[2021-08-05 04:00] VITALS: BP 163/78; PULSE 73; RESP 18; TEMP 36.8; O2SAT 94
[2021-08-05 06:00] VITALS: PULSE 80
[2021-08-05 06:52] LABS: Glucose Point of Care 129 mg/dL (70-110)
[2021-08-05 07:39] VITALS: BP 163/78; PULSE 80; RESP 18; TEMP 36.8; O2SAT 94
[2021-08-05] MEDS: atenolol 50 mg Tablet 25 MG PO (08:26)
[2021-08-05] MEDS: lisinopril 10 mg Tablet PO (08:26)
[2021-08-05] MEDS: clopidogrel 75 mg Tablet PO (08:26)
[2021-08-05] MEDS: aspirin 81 mg EC Tablet PO (08:26)
[2021-08-05] MEDS: fluticasone nasal spray 16gm Btl 1 SPRAY NASAL (08:27)
[2021-08-05 08:38] VITALS: BP 120/70; PULSE 65; RESP 12; TEMP 36.8; O2SAT 92
--- NOTE | 2021-08-05 10:17 | P.DS_ITS ---
Discharge Providers Date of Admission: 07/26/21 05:47 Date of Discharge: August 05, 2021 Attending Provider at Admission: Brenda Mukherjee DO Attending Provider at Discharge: Kwasi Bradley MD Primary Care Provider: Zohaib West MD Diagnoses at Discharge Discharge Diagnosis (1) CVA (cerebral vascular accident): Status: Acute (2) Diabetes: Status: Acute Qualifiers: Diabetes mellitus type: type 2 Diabetes mellitus terminal supervisor insulin use: with terminal supervisor use Diabetes mellitus complication status: with hyperglycemia Qualified Code(s): E11.65 - Type 2 diabetes mellitus with hyperglycemia; Z79.4 - long term care administrator (current) use of insulin (3) Hypercholesteremia: Status: Acute (4) Hypertension: Status: Acute Qualifiers: Hypertension type: essential hypertension Qualified Code(s): I10 - Essential (primary) hypertension Reason for Visit Reason for Visit: Stroke Hospital Course Hospital Course Serenity is a 58-year-old female who presented on July 26 after a fall. She had recently had a CVA for which she was admitted from July 23 July 24, at which time she was discharged on Plavix, aspirin, statin. On readmission she gives a history of having increasing dysphagia and left-sided weakness. Previous work- up included a transthoracic echo showing preserved ejection fraction, no evidence of thrombus. She was on telemetry which demonstrated no arrhythmia. Telemetry was also applied during this hospital stay, an extended timeframe, with no atrial fibrillation noted. CTA of her head and neck did demonstrate some areas of infarction in the bilateral cerebral hemispheres, largest in the right posterior frontal white matter. No obvious severe stenosis was noted. This led to concern for referral for WENDI as an outpatient, which should still be entertained as well as event monitor which should be entertained although we have approximately 1 week of data in the hospital that has not seen any atrial fibrillation. During her hospital stay there was concern of exposure to measles, that ultimately was unfounded. She was able to transition to the [facility] on August 05. She will be following up with neurology, cardiology, and have an event monitor placed as per previous orders. Physical Exam Narrative: General exam no distress Neck supple no lymphadenopathy thyromegaly Cardiovascular regular rate rhythm without murmur Lungs clear Abdomen is soft with positive bowel sounds Extremities no cyanosis clubbing or edema Neuro left hemiparesis noted. Discharge Data Studies Completed and Pending Completed Studies During Hospitalization Category Date Time Status CT head wo con* [id number] Stat Cat Scan 07/26/21 03:[address] head wo con* [id number] Stat Cat Scan 07/30/21 11:58 Completed CTA head neck [CT angio headneck* [id number]] Urgent Cat Scan 07/26/21 03:54 Completed CXRP [XR chest 1V portable [id number]] Stat Exams 07/26/21 03:22 Completed Pending at discharge Category Date Time Status Miscellaneous Test Routine Lab 07/31/21 01:29 Stop Req Rubeola Antibody IGM Routine Lab 07/30/21 22:37 Stop Req SARS Covid-2 Antigen Routine Lab 08/05/21 10:11 Uncollected Radiology Impressions Chest X-Ray 07/26/21 03:22 IMPRESSION: No acute findings. Head/Neck CTA 07/26/21 03:54 IMPRESSION: 1. No large vessel stenosis or occlusion. 2. Multiple areas of infarction seen within the deep white matter of the cerebral hemispheres bilaterally. The largest is seen in the right posterior frontal deep white matter. Today, this lesion appears larger compared with 07/23/2021 but similar in size configuration compared with the MRI a 07/24/2021.. IMPRESSION: No stenosis or occlusion. REFERENCES: NASCET CRITERIA. The degree of internal carotid artery stenosis is based on NASCET criteria. Normal is no stenosis. Mild is less than 50% stenosis. Moderate is 50-69% stenosis. Severe is 70% to 99% stenosis. Total occlusion is no detectable patent lumen. Head CT 07/30/21 11:58 IMPRESSION: 1. No evidence of intracranial hemorrhage 2. Evolving low-attenuation infarct in the RIGHT centrum semiovale today measuring 3.1 x 2.1 cm slightly increased in size compared to the prior examinations. 3. Tiny subacute infarcts in the RIGHT haas radiata and periventricular white matter better seen on the recent MRI. 4. Chronic lacunar infarcts in the LEFT haas radiata and periventricular white matter unchanged. 5. Trace fluid in the maxillary sinuses bilaterally. Laboratory Results WBC 8.3 10^3/uL (4.0-10.0) 08/03/21 04:45 RBC 4.78 10^6/uL (4.1-5.3) 08/03/21 04:45 Hgb 14.5 g/dL (11.5-15.3) 08/03/21 04:45 Hct 44.8 % (37.0-47.0) 08/03/21 04:45 MCV 93.7 fl (81-99) 08/03/21 04:45 MCH 30.3 pg (28.0-34.0) 08/03/21 04:45 MCHC 32.4 g/dL (30.0-36.0) 08/03/21 04:45 RDW 11.8 % (12.1-15.1) L 08/03/21 04:45 Plt Count 230 10^3/cmm (130-400) 08/03/21 04:45 MPV 9.4 fL (7.4-10.4) 08/03/21 04:45 Neut % (Auto) 61.0 % 08/03/21 04:45 Lymph % (Auto) 25.2 % 08/03/21 04:45 [place] % (Auto) 9.2 % 08/03/21 04:45 Eos % (Auto) 3.5 % 08/03/21 04:45 Baso % (Auto) 0.7 % 08/03/21 04:45 Neut # (Auto) 5.06 10^3/uL (1.8-7.7) 08/03/21 04:45 Lymph # (Auto) 2.1 10^3/uL (0.8-4.8) 08/03/21 04:45 [place] # (Auto) 0.8 10^3/uL (0.2-0.9) 08/03/21 04:45 Eos # (Auto) 0.3 10^3/uL (0.0-0.8) 08/03/21 04:45 Baso # (Auto) 0.1 10^3/uL (0.0-0.1) 08/03/21 04:45 Nucleated RBC % (auto) 0 % 08/03/21 04:45 Nucleated RBCs # 0.0 /100WBC 08/03/21 04:45 PT 13.10 SECONDS (12.1-14.9) 07/26/21 03:30 INR 0.97 (0.8-1.2) 07/26/21 03:30 APTT 24.6 SECONDS (23.9-36.7) 07/26/21 03:30 Sodium 135 mmol/L (136-145) L 08/03/21 04:45 Sodium Cancelled 08/03/21 04:45 Potassium 3.6 mmol/L (3.5-5.1) 08/03/21 04:45 Potassium Cancelled 08/03/21 04:45 Chloride 101 mmol/L (98-107) 08/03/21 04:45 Chloride Cancelled 08/03/21 04:45 Carbon Dioxide 27 mmol/L (22-29) 08/03/21 04:45 Carbon Dioxide Cancelled 08/03/21 04:45 Anion Gap 10.6 (5-19) 08/03/21 04:45 Anion Gap Cancelled 08/03/21 04:45 BUN 14 mg/dL (8-23) 08/03/21 04:45 BUN Cancelled 08/03/21 04:45 Creatinine 0.4 mg/dL (0.5-0.9) L 08/03/21 04:45 Creatinine Cancelled 08/03/21 04:45 GFR Calculation 158.7 mL/min (90-130) H 08/03/21 04:45 GFR Calculation Cancelled 08/03/21 04:45 Glucose 130 mg/dL (65-115) H 08/03/21 04:45 Glucose Cancelled 08/03/21 04:45 POC Glucose 129 mg/dL (70-110) H 08/05/21 06:46 Calculated Osmolality 295 mOsm/kg (285-295) 07/27/21 05:21 Calcium 8.2 mg/dL (8.5-10.5) L 08/03/21 04:45 Calcium Cancelled 08/03/21 04:45 Phosphorus 3.1 mg/dL (2.5-4.5) 08/03/21 04:45 Phosphorus Cancelled 08/03/21 04:45 Magnesium 1.9 mg/dL (1.7-2.3) 08/03/21 04:45 Total Bilirubin 0.6 mg/dL (0.15-1.2) 07/26/21 03:30 AST 23 U/L (0-32) 07/26/21 03:30 ALT 23 U/L (0-33) 07/26/21 03:30 Alkaline Phosphatase 95 IU/L (35-105) 07/26/21 03:30 Troponin T Baseline 10 ng/L (0-10) 07/26/21 03:30 Troponin T 120 Minute 8.66 ng/L (0-10) 07/26/21 07:22 Delta Troponin T -1.34 ABS# (0-10) L 07/26/21 07:22 Troponin T Hi Sens 6Hr 8.47 ng/L (0-10) 07/26/21 10:34 Troponin T Hi Sens 6Hr Delta -1.53 ng/L (0-12) L 07/26/21 10:34 Total Protein 6.7 g/dL (6.6-8.7) 07/26/21 03:30 Albumin 3.3 g/dL (3.5-5.2) L 08/03/21 04:45 Albumin Cancelled 08/03/21 04:45 Globulin 3.0 g/dL (1.3-4.6) 07/26/21 03:30 Vitamin B12 745 pg/mL (232-1245) 07/26/21 03:30 Folate 18.9 ng/mL (4.8-37.3) 07/26/21 03:30 TSH 2.18 uIU/mL (0.27-4.20) 07/26/21 03:30 Free T4 1.06 ng/dL (0.82-1.77) 07/26/21 03:30 Urine Color Cancelled 07/29/21 04:40 Urine Color Yellow (Yellow) 07/29/21 04:40 Urine Appearance Cancelled 07/29/21 04:40 Urine Appearance Clear (CLEAR) 07/29/21 04:40 Urine pH 5 (5-7) 07/29/21 04:40 Urine pH Cancelled 07/29/21 04:40 Ur Specific [place] 1.025 (1.005-1.030) 07/29/21 04:40 Ur Specific [place] Cancelled 07/29/21 04:40 Urine Protein Cancelled 07/29/21 04:40 Urine Protein Trace (Negative) 07/29/21 04:40 Urine Glucose (UA) 1+ (Normal) H 07/29/21 04:40 Urine Glucose (UA) Cancelled 07/29/21 04:40 Urine Ketones Cancelled 07/29/21 04:40 Urine Ketones Negative (Negative) 07/29/21 04:40 Urine Blood Cancelled 07/29/21 04:40 Urine Blood Neg (Negative) 07/29/21 04:40 Urine Nitrate Cancelled 07/29/21 04:40 Urine Nitrate Negative (Negative) 07/29/21 04:40 Urine Bilirubin Cancelled 07/29/21 04:40 Urine Bilirubin Neg (Negative) 07/29/21 04:40 Prot Sulfosalicylic Acd Cancelled 07/29/21 04:40 Urine Urobilinogen Cancelled 07/29/21 04:40 Urine Urobilinogen Norm mg/dL (Negative) 07/29/21 04:40 Ur Leukocyte Esterase Cancelled 07/29/21 04:40 Ur Leukocyte Esterase Negative (Negative) 07/29/21 04:40 Urine RBC 0-4 /hpf (0-2) H 07/29/21 04:40 Urine WBC 0-4 /hpf (0-5) H 07/29/21 04:40 Ur Squamous Epith Cells 0-4 /hpf (0-5) H 07/29/21 04:40 Amorphous Sediment Not Reportable 07/29/21 04:40 Urine Bacteria Trace /hpf (NONE) 07/29/21 04:40 Urine Mucus 2+ /hpf 07/29/21 04:40 Urine Opiates Screen Negative ng/mL (Negative) 07/29/21 04:40 Ur Barbiturates Screen Negative ng/mL (Negative) 07/29/21 04:40 Ur Phencyclidine Scrn Negative ng/mL (Negative) 07/29/21 04:40 Ur Amphetamines Screen Negative ng/mL (Negative) 07/29/21 04:40 U Benzodiazepines Scrn Negative ng/mL (Negative) 07/29/21 04:40 Urine Cocaine Screen Negative ng/mL (Negative) 07/29/21 04:40 U Marijuana (THC) Screen Negative ng/mL (Negative) 07/29/21 04:40 Rubella IgG Antibody 0.2 IU/mL (0.0-10.0) 07/30/21 05:42 SARS-CoV-2 Ag (Rapid) Negative (Negative) 07/30/21 15:27 Vitals Last Vital Signs Temp 98.3 F 08/05/21 08:38 Pulse 65 08/05/21 08:38 Resp 12 08/05/21 08:38 BP 120/70 08/05/21 08:38 Pulse Ox 92 08/05/21 08:38 Discharge Plan Discharge Patient Disposition: Xfer SNF Condition: Stable Prescriptions: New atenolol 50 mg Tablet 25 mg PO DAILY Qty: 30 0RF atorvastatin 40 mg Tablet 80 mg PO BEDTIME Qty: 60 0RF insulin lispro [Humalog U-100 Insulin] 100 unit/mL Solution 0 unit SUBCUT WM&BEDTIME Qty: 100 0RF Continued All Day Allergy (cetirizine) 10 mg capsule 10 mg PO DAILY Qty: 60 0RF (DME) pen needle, diabetic [TechLITE Pen Needle] 31 gauge x 3/16 needle See Rx Instructions .ROUTE .COMPLEX Qty: 300 4RF Dose Instruction: USE DIRECTED Rx Instructions: USE DIRECTED aspirin 81 mg Tablet,Chewable 81 mg PO DAILY 0RF Levemir FlexTouch U-100 Insuln 100 unit/mL (3 mL) insulin pen 50 unit SUBCUT BID 0RF Januvia 50 mg tablet 50 mg PO DAILY 0RF clopidogrel [Plavix] 75 mg tablet 75 mg PO DAILY Qty: 21 0RF lisinopril 10 mg Tablet 10 mg PO DAILY 0RF Discontinued glipizide 5 mg tablet 5 mg PO BID 90 Days Qty: 180 1RF atorvastatin 40 mg Tablet 40 mg PO BEDTIME Qty: 90 0RF atenolol 100 mg tablet 50 mg PO DAILY PRN (Reason: Hypertension) Qty: 0 0RF Discharge Orders: Discharge Order (Routine); Ordered 08/05/21 Ordered By: Kwasi Bradley Referrals: [facility] [Outside] - 4-7 days (CBC, BMP on follow-up) Gabby Pineda MD [Physician] - 2 weeks (follow up CVA) Zohaib West MD [Primary Care Provider] - Discharge Diet: Diabetic Activity Restrictions/Additional Instructions: Please confirm and keep follow-up with cardiology group regarding WENDI, event monitor placement as noted on prior discharge July 24. Take all medicine as prescribed Diet is cardiac consistent carb, with nectar thick liquids pur?ed consistency Discharge Attestations Time Spent in Discharge Care*: greater than 30 min Quality Metrics Clinical Quality Measures [ Cerebrovascular Accident { Contraindication to Antithrombotic: None; antithrombotic prescribed; Contraindication to Anticoagulation: None; anticoagulation prescribed; Contraindication to Statin: None; Statin prescribed;}] Coding Level of Care Code Acute Chg FW DC note Diagnoses CVA (cerebral vascular accident) I63.9 Diabetes E11.65; Z79.4 Diabetes mellitus type: type 2 Diabetes mellitus terminal supervisor insulin use: with fci use Diabetes mellitus complication status: with hyperglycemia Hypercholesteremia E78.00 Hypertension I10 Hypertension type: essential hypertension
[2021-08-05 10:55] LABS: Glucose Point of Care 272 mg/dL (70-110)
[2021-08-05 12:00] VITALS: BP 123/72; PULSE 63; RESP 13; TEMP 36.8; O2SAT 96
[2021-08-05] MEDS: insulin lispro 100 unit/1 mL SUBCUT (12:02)
[2021-08-05 12:19] LABS: SARS Covid-2 Antigen Negative (Negative)
[2021-08-05 15:08] VITALS: BP 123/72; PULSE 63; RESP 13; TEMP 36.8; O2SAT 96
[2021-08-05 17:42] LABS: Rubeola Antibody IGM <1:20 titer
== END 2021-08-05 15:08 | disposition skilled nursing facility (03) | DRG 65 ==
LOC: ER 05:41 → MEDSURG 05:47
PROVIDERS: Internal Medicine; Admitting Provider Internal Medicine; Emergency Provider Emergency Medicine; PCP Family Medicine; Visit Provider Internal Medicine
DX: I63.9 Cerebral infarction, unspecified (principal); G81.94 Hemiplegia, unspecified affecting left nondominant side; R29.810 Facial weakness; R47.01 Aphasia; R13.10 Dysphagia, unspecified; R29.708 NIHSS score 8; E11.65 Type 2 diabetes mellitus with hyperglycemia; I10 Essential (primary) hypertension; R29.6 Repeated falls; G40.909 Epilepsy, unspecified, not intractable, without status epilepticus; E78.5 Hyperlipidemia, unspecified; E66.9 Obesity, unspecified; Z68.35 Body mass index [BMI] 35.0-35.9, adult; E78.00 Pure hypercholesterolemia, unspecified; L25.9 Unspecified contact dermatitis, unspecified cause; Z79.82 Long term (current) use of aspirin; Z79.02 Long term (current) use of antithrombotics/antiplatelets; Z79.84 Long term (current) use of oral hypoglycemic drugs
CPT/HCPCS: 36415; 36416; 70450; 70496; 70498; 70553; 71045; 80048; 80053; 80061; 80069; 80306; 81001; 81003; 82607; 82746; 82962; 83036; 83721; 83735; 84439; 84443; 84484; 85025; 85610; 85730; 86618; 86666; 86757; 86762; 86765; 87426; 87493; 92507; 92523; 92526; 92610; 93005; 93306; 96372; 97110; 97112; 97116; 97161; 97165; 97530; 97535; 99285; G0378; J1644; J1815; Q9967

== ENCOUNTER → 2021-08-05 16:14 | Outpatient (BNVA) | payer MEDICARE, MEDICAID, SELFPAY | PROVIDERS: PCP Family Medicine; Visit Provider Internal Medicine Cardiovascular Disease | DX: I63.9 Cerebral infarction, unspecified (principal); I49.1 Atrial premature depolarization; I49.3 Ventricular premature depolarization | CPT/HCPCS: 93270 ==

== ENCOUNTER → 2021-08-11 08:55 | Outpatient (BNVA) | payer MEDICARE, MEDICAID, SELFPAY | PROVIDERS: PCP Family Medicine; Referring Provider Internal Medicine; Visit Provider Nurse Practitioner | DX: I69.322 Dysarthria following cerebral infarction (principal); I69.354 Hemiplegia and hemiparesis following cerebral infarction affecting left non-dominant side; E11.9 Type 2 diabetes mellitus without complications; Z79.4 Long term (current) use of insulin; I10 Essential (primary) hypertension; E78.5 Hyperlipidemia, unspecified | CPT/HCPCS: 99204 ==

== ENCOUNTER → 2021-09-09 14:09 | Outpatient (BNVA) | payer MEDICARE, MEDICAID, SELFPAY | PROVIDERS: PCP Family Medicine; Visit Provider Internal Medicine | DX: I63.9 Cerebral infarction, unspecified (principal); E11.65 Type 2 diabetes mellitus with hyperglycemia; Z79.4 Long term (current) use of insulin; I10 Essential (primary) hypertension; E78.00 Pure hypercholesterolemia, unspecified | CPT/HCPCS: 99203; 99204 ==

== ENCOUNTER → 2021-09-16 08:45 | Outpatient (BNVA) | payer MEDICARE, MEDICAID, SELFPAY | PROVIDERS: PCP Family Medicine; Visit Provider Specialist | DX: I69.354 Hemiplegia and hemiparesis following cerebral infarction affecting left non-dominant side (principal); I10 Essential (primary) hypertension; E11.9 Type 2 diabetes mellitus without complications; Z79.4 Long term (current) use of insulin | CPT/HCPCS: 99214; 99215 ==

== ENCOUNTER 2021-10-03 10:23 | Day surgery (SDC) | payer MEDICARE, MEDICAID, SELFPAY ==
[2021-10-01 13:38] VITALS: BMI 34.4
[2021-10-03 10:40] VITALS: BP 155/67; PULSE 73; RESP 18; TEMP 36.2; O2SAT 95
[2021-10-03] MEDS: sodium chloride 0.9% 1,000 ML 30 ML IV (10:51)
--- NOTE | 2021-10-03 11:28 | ANES.PREANE2 ---
Pre-Anesthetic Assessment Height/Weight: Height 1.55 m Weight 82.554 kg Temp Pulse Resp BP Pulse Ox 97.2 F L 73 18 155/67 95 10/03/21 10:40 10/03/21 10:40 10/03/21 10:40 10/03/21 10:40 10/03/21 10:40 Preop Diagnosis: CVA Operation Date: 10/03/21 12:00 Proposed Procedures p WENDI 68529,I63.9(Not Applicable) - Denise Sumner anesthetic complications: none Was Beta Emmy taken within 24 hours: Yes Was Clonidine taken within 24 hours: N/A Last intake: Intake Last Liquid Date 10/02/21 Last Liquid Time 17:00 Last Solid Date 10/02/21 Last Solid Time 17:00 Social No alcohol and No tobacco Exam alert, oriented x 3 (Oriented to date, day, place, situation ), clear to auscultation bilaterally and regular rate & rhythm Airway Submandibular: within normal limits Cervical ROM: within normal limits Mallampati: Class II Comments: Comments: missing teeth Pulmonary None reported CV/HEM Hypertension Denies CAD Hx of cardiac arrest Holter report 2021 Conclusion: 1.? The baseline rhythm was found to be normal sinus withan overall average heart rate of 75 bpm.? Rare ventricular and supraventricular ectopics.? A short run of nonsustained ventricular tachycardia was found to be asymptomatic, lasting was 6.2 seconds 2.? No symptoms are mentioned with any of the recordings 3.? No previous similar studies, available for comparison TTE 07/23/21 ?CONCLUSIONS ?LV systolic function is normal with EF of 55 to 60%. ?Grade 1 diastolic dysfunction. ?Trace mitral regurgitation. ?Trace tricuspid regurgitation ?Compared to prior echocardiogram from 2017, no significant ?changes are noted. EKG 08/01 Interpretive Statements SINUS RHYTHM WITH OCCASIONAL ECTOPIC PREMATURE COMPLEXES Compared to ECG 07/26/2021 03:15:19 T-wave abnormality no longer present Electronically Signed On 07-26-2021 15:00:38 CDT by Bruna Bangura M.D. [id number] Hyponatremia Hepatic None reported GI Gastroesophageal Reflux Disease (well controlled ) Metabolic Diabetes Mellitus Neuropsych Cerebrovascular Accident (First stroke 2017. Recent CVA July, w/ left side deficits upper and lower extremities, facial asymmetry w/o dsyphagia/aspiration hx ) and Seizure (Hx of epilepsia ) CT 07/2021 CT/CT head wo con* [id number] IMPRESSION: ? 1.? No evidence of intracranial hemorrhage 2.? Evolving low-attenuation infarct in the RIGHT centrum semiovale today measuring 3.1 x 2.1 cm slightly increased in size compared to the prior examinations. 3.? Tiny subacute infarcts in the RIGHT haas radiata and periventricular white matter better seen on the recent MRI. 4.? Chronic lacunar infarcts in the LEFT haas radiata and periventricular white matter unchanged. 5.? Trace fluid in the maxillary sinuses bilaterally. Neck CTA 07/2021 CT/CT angio headneck* [id number] IMPRESSION: 1. No large vessel stenosis or occlusion. 2. Multiple areas of infarction seen within the deep white matter of the cerebral hemispheres bilaterally. The largest is seen in the right posterior frontal deep white matter. Today, this lesion appears larger compared with 07/23/2021 but similar in size configuration compared with the MRI a 07/24/2021.. ? ? IMPRESSION: No stenosis or occlusion. Anesthetic Plan ASA status: 3 (66 year old femal w/ hx stroke with left side hemiparesis, htn, DM ) Anesthesia: Anesthesia Evaluation and General Other: We discussed risk and benefits of general anesthesia including PONV, sore throat (sometimes severe), corneal abrasion, positioning and peripheral nerve injuries, life threatening allergic reaction, post operative ICU admission requiring prolonged intubation, aspiration, stroke, heart attack, , and rare incidences of recall. Patient consents to proceed with general anesthesia. Risk of > 500 ml blood loss (7ml/kg in children): No Medications/Allergies Home Medications Medication Instructions Recorded Confirmed Last Taken Type cetirizine 10 mg capsule (All Day 10 mg PO DAILY #60 cap 05/06/21 10/03/21 10/02/21 Rx Allergy (cetirizine)) pen needle, diabetic 31 gauge x #300 ea 07/07/21 09/16/21 Unknown Rx 06/25 (TechLITE Pen Needle) aspirin 81 mg chewable tablet 81 mg PO DAILY 07/23/21 10/03/21 10/02/21 History insulin detemir U-100 100 unit/mL 50 unit SUBCUT BID 07/23/21 10/03/21 10/02/21 History (3 mL) subcutaneous pen (Levemir FlexTouch U-100 Insulin) sitagliptin 50 mg tablet (Januvia) 100 mg PO DAILY 07/23/21 10/03/21 10/02/21 History clopidogrel 75 mg tablet (Plavix) 75 mg PO DAILY #21 tab 07/24/21 10/03/21 10/02/21 Rx atenolol 50 mg tablet 25 mg PO DAILY #30 tab 08/05/21 10/03/21 10/02/21 Rx atorvastatin 40 mg tablet 80 mg PO BEDTIME #60 tab 08/05/21 10/03/21 10/02/21 Rx bisacodyl 10 mg rectal suppository 10 mg VT DAILY PRN 08/11/21 10/03/21 Unknown History (Dulcolax (bisacodyl)) fluticasone propionate 50 2 spray INTRANASAL DAILY 08/11/21 10/03/21 Unknown History mcg/actuation nasal spray,suspension magnesium hydroxide 400 mg/5 mL 30 ml PO DAILY PRN ml 08/11/21 10/03/21 Unknown History oral suspension (Milk of Magnesia) polyethylene glycol 3350 17 17 g PO DAILY 08/11/21 10/03/21 Unknown History gram/dose oral powder (Miralax) sennosides 8.6 mg tablet (senna) 8.6 mg PO BID 08/11/21 10/03/21 10/02/21 History sodium phosphates 19 gram-7 118 ml VT DAILY PRN 08/11/21 10/03/21 Unknown History gram/118 mL enema (Fleet Enema) lisinopril 10 mg tablet 20 mg PO DAILY tab 09/09/21 10/03/21 10/02/21 History omeprazole 20 mg capsule,delayed 20 mg PO DAILY 09/09/21 10/03/21 10/02/21 History release insulin lispro 100 unit/mL See Rx Instructions .ROUTE .COMPLEX 10/01/21 10/03/21 10/02/21 History subcutaneous cartridge (Humalog U-100 Insulin) Allergies Allergy/AdvReac Type Severity Reaction Status Date / Time Sulfa (Sulfonamide Allergy na Verified 09/16/21 08:57 Antibiotics) Current Medications Generic Name Dose Route Start Last Admin Trade Name Freq PRN Reason Stop Dose Admin Sodium Chloride 1,000 mls @ 30 mls/hr 10/03/21 10:30 10/03/21 10:51 Sodium Chloride 0.9% IV 10/04/21 10:29 30 mls/hr .Q24H IVETTE Administration PFSH Anesthesia Medical History Cardiac arrest Complicated UTI (urinary tract infection) Diabetes Epilepsia Hypercholesteremia Hypertension Seizure Surgical History No significant past surgical history Family History Other No significant family history Social History Smoking and tobacco status: never smoked Alcohol intake: never Household members: significant other Data Anesthesia Cardiac Studies: Echocardiogram 07/23/21 Cardiac Event Monitor 08/05/21
--- NOTE | 2021-10-03 12:02 | USCV_ITS ---
Serenity Ramirez Age: 66 Gender: F : 1955 Exam Date: 10/03/2021 12:25 Ordering Phys: Abhilash Byrd M.D ([email or web address]) Technologist: Regine Rios [place] [facility] [place] cva BP: 155 / 67 HR: 89 Rhythm: Sinus Technical Quality: Adequate MEASUREMENTS (Male / Female) Normal Values Medications Complications None Proc. Components After anesthesia team administered sedating medicines, WENDI probe was introduced. FINDINGS Left Ventricle LV is normal in size and function. Right Ventricle Normal in size and function Right Atrium Grossly normal Left Atrium Normal LA Appendage No CLARIBEL thrombus seen IA Septum Normal. No intracardiac shunting noticed. No bubbles seen crossing the interatrial septum Mitral Valve Normal structure. Aortic Valve Tricuspid aortic valve. Tricuspid Valve Normal Pulmonic Valve Pericardium Normal Aorta Moderate atherosclerotic plaque seen in the aorta CONCLUSIONS Normal LV systolic function No left atrial thrombus seen On bubble study, no intracardiac shunting seen Moderate atherosclerotic plaque seen in the aorta Abhilash Byrd MD (Electronically Signed) Final Date: 10 October 2021 07:41 S
--- NOTE | 2021-10-03 12:26 | W.PM.OPSUD ---
Surgery/Procedure H&P Update DATE OF PROCEDURE: October 03, 2021 DATE H&P PERFORMED: 09/09/21 H&P UPDATE INFORMATION: I have reviewed H&P completed within last 30 days, I have examined patient prior to procedure and No changes to prior documentation PREOP DIAGNOSIS: CVA/Rule out cardiac, embolic source of stroke PRIMARY INDICATION FOR PROCEDURE: CVA/Rule out cardiac, embolic source of stroke PLANNED PROCEDURE: Operation Date: 10/03/21 12:00 Proposed Procedures p WENDI 41125,I63.9(Not Applicable) - Abhilash Byrd M.D PATIENT REASSESSED PRIOR TO SEDATION, WITH NO CHANGE NOTED: Yes PHYSICAL EXAM: alert, oriented x 3, clear to auscultation bilaterally and regular rate & rhythm
[2021-10-03 12:42] VITALS: BP 117/94; PULSE 95; RESP 16; TEMP 36.2; O2SAT 97
[2021-10-03 12:52] VITALS: BP 148/72; PULSE 81; RESP 18; O2SAT 94
[2021-10-03 13:05] VITALS: BP 150/87; PULSE 77; RESP 18; O2SAT 95
--- NOTE | 2021-10-03 13:17 | ANE.PACU2 ---
Inpatient post-anesthesia follow up: Airway intact: Yes Vital signs: Temperature 97.2 F Pulse Rate 77 Respiratory Rate 18 Blood Pressure 150/87 Pulse Oximetry 95 Oxygen Delivery Me thod Room Air Oxygen Flow Rate 5 Fraction of Inspir ed Oxygen Hydration adequate: Yes Nausea and vomiting: No Pain level: 1 Mental status: Baseline
== END 2021-10-03 13:30 | disposition home or self-care (01) ==
PROVIDERS: PCP Family Medicine; Visit Provider Internal Medicine
PROC: (CPT 93312; principal; 2021-10-03 12:00)
DX: I63.9 Cerebral infarction, unspecified (principal); I10 Essential (primary) hypertension; K21.9 Gastro-esophageal reflux disease without esophagitis; E11.9 Type 2 diabetes mellitus without complications; Z86.73 Personal history of transient ischemic attack (TIA), and cerebral infarction without residual deficits; Z79.82 Long term (current) use of aspirin; Z79.4 Long term (current) use of insulin
CPT/HCPCS: 93312; 93320; 93325; J7030

== ENCOUNTER → 2021-12-09 12:56 | Outpatient (BNVA) | payer MEDICARE, MEDICAID, SELFPAY | PROVIDERS: PCP Family Medicine; Visit Provider Internal Medicine | DX: E11.65 Type 2 diabetes mellitus with hyperglycemia (principal); Z79.4 Long term (current) use of insulin; I10 Essential (primary) hypertension; E78.00 Pure hypercholesterolemia, unspecified | CPT/HCPCS: 99214 ==

== ENCOUNTER → 2022-03-17 10:38 | Outpatient (BNVA) | payer MEDICARE, MEDICAID, SELFPAY | PROVIDERS: PCP Family Medicine; Visit Provider Specialist | DX: I69.354 Hemiplegia and hemiparesis following cerebral infarction affecting left non-dominant side (principal); E11.65 Type 2 diabetes mellitus with hyperglycemia; Z79.4 Long term (current) use of insulin; I10 Essential (primary) hypertension | CPT/HCPCS: 99213 ==

== ENCOUNTER → 2022-12-08 12:40 | Outpatient (BNVA) | payer MEDICARE, MEDICAID, SELFPAY | PROVIDERS: PCP Family Medicine; Visit Provider Internal Medicine | DX: I63.9 Cerebral infarction, unspecified (principal); E11.65 Type 2 diabetes mellitus with hyperglycemia; Z79.4 Long term (current) use of insulin; I10 Essential (primary) hypertension; E78.00 Pure hypercholesterolemia, unspecified | CPT/HCPCS: 99214 ==

== ENCOUNTER → 2023-02-01 13:50 | Outpatient (BNVA) | payer MEDICARE, MEDICAID, SELFPAY | PROVIDERS: PCP Family Medicine; Visit Provider Podiatrist Foot & Ankle Surgery | DX: B35.1 Tinea unguium (principal); E11.65 Type 2 diabetes mellitus with hyperglycemia; Z79.4 Long term (current) use of insulin; I63.9 Cerebral infarction, unspecified; I73.9 Peripheral vascular disease, unspecified; G62.9 Polyneuropathy, unspecified | CPT/HCPCS: 11721; 99203 ==

== ENCOUNTER 2023-10-25 08:03 | Emergency (ER) | payer MEDICARE, MEDICAID, SELFPAY ==
[2023-10-25] VITALS (9 sets, daily range): BP systolic 146–179; BP diastolic 87–101; PULSE 93–109; RESP 16–23; TEMP 37.1; O2SAT 89–98; BMI 35.6
--- NOTE | 2023-10-25 08:06 | ECG_ITS ---
[facility] Test Date: 2023-10-25 Pat Name: Serenity Ramirez Department: Room: Gender: Female Entry Level Account Representative: : 1955 Requested By: Yogesh Gabriel Order Number: [id number] Raghavendra MD: Abhilash Byrd M.D. Measurements Intervals [place] Laird Rate: 103 P: 57 ME: 159 QRS: 25 QRSD: 90 T: 66 QT: 356 QTc: 467 Interpretive Statements SINUS TACHYCARDIA MINIMAL ST DEPRESSION [0.025+ mV ST DEPRESSION] Compared to ECG 07/26/2021 08:34:22 ST (T wave) deviation now present Sinus rhythm no longer present Electronically Signed On 10-25-2023 9:44:00 CDT by Abhilash Byrd M.D. [email or web address]
--- NOTE | 2023-10-25 08:06 | CTR_ITS ---
PROCEDURE INFORMATION: Exam: CT Head Without Contrast Exam date and time: 10/25/2023 8:12 AM Age: 68 years old Clinical indication: Stroke-like symptoms; Speech disturbance; Additional info: Symptoms of acute stroke TECHNIQUE: Imaging protocol: Computed tomography of the head without contrast. Radiation optimization: All CT scans at this facility use at least one of these dose optimization techniques: automated exposure control; mA and/or kV adjustment per patient size (includes targeted exams where dose is matched to clinical indication); or iterative reconstruction. Other technique: STROKE PROTOCOL was implemented. COMPARISON: CT head wo con* [id number] 07/30/2021 12:34 PM RADIATION DOSE METRICS: Total DLP (mGy-cm): 1074.35 FINDINGS: Brain: Low attenuating white-matter change suggest micro vessel ischemia on a chronic basis. Subacute or chronic lacunar infarction right thalamus. Low attenuating areas within the robert. No acute intracranial hemorrhage. Cerebral ventricles: No ventriculomegaly. Paranasal sinuses: Mucosal thickening of ethmoid and left maxillary sinuses. Mastoid air cells: Visualized mastoid air cells are well aerated. Bones: Unremarkable. No acute fracture. Soft tissues: Unremarkable. Other findings: Hemispheric volume loss. CT/CT head thrombolytic [id number] IMPRESSION: 1. Hemispheric volume loss. 2. White matter changes suggest micro vessel ischemia on a chronic basis. 3. Subacute or chronic areas of lacunar infarction or ischemia of the right thalamus and robert. ASSESSMENT: ASPECTS ([place] Stroke Program Early CT Score) is 10.
--- NOTE | 2023-10-25 08:15 | ED_ITS ---
HPI - Neuro Symptoms/Deficit 2 General: Chief Complaint: Neuro Symptoms/Deficit Stated Complaint: stroke like symptoms Time Seen by Provider: 10/25/23 08:04 Source: patient Mode of arrival: EMS History of Present Illness: 68-year-old female brought in by EMS fro m local nursing. They are reporting that she was worse. They said she got up and was her normal self and then worsened at around 730. 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 She identifies her difficulty with speech persistent left-sided facial droop contractures in her left hand and weakness with her left arm and leg. She states none of these are worse. Her vision is always blurry and has not changed when I ask her specifically what brought her and she said she just does not feel well and thinks she might have been about to have a seizure but did not actually have a seizure. She denies chest pain or shortness of breath or abdominal pain Associated symptoms: Deny chest pain Review of Systems 2 Const: Denies: fever(s) or chills Card: Denies: chest pain Resp: Denies: dyspnea GI: Denies: abdominal pain : Denies: dysuria, urinary frequency or urinary urgency Musc: Denies: neck pain or back pain Skin/Breast: Denies: rash PFSH ED 2 PFSH: Medical History Cardiac arrest Complicated UTI (urinary tract infection) Diabetes Epilepsia Hypercholesteremia Hypertension Seizure Surgical History No significant past surgical history Family History Other No significant family history Social History Smoking and tobacco/nicotine status: never used tobacco/nicotine Alcohol intake: never Substance/Drug Use: never Household members: significant other Physical Exam 2 Const: GENERAL APPEARANCE: cooperative and comfortable O RIENTATION/CONSCIOUSNESS: Yes awake, Yes oriented to person, Yes oriented to place and Yes oriented to time HENMT: COMMON NORMALS: normocephalic, atraumatic and hearing grossly normal bilaterally HEAD & SCALP: normocephalic and atraumatic Resp: COMMON NORMALS: normal respiratory effort, No retractions, No use of accessory muscles and clear to auscultation bilaterally AUSCULTATION: clear to auscultation bilaterally Cardio: COMMON NORMALS: regular rate, regular rhythm and No murmurs present (Cardio) RATE: regular rate RHYTHM: regular rhythm GI: COMMON NORMALS: Soft to palpation and No hepatosplenomegaly present A USCULTATION: Yes normoactive bowel sounds PALPATION: Yes Soft to palpation, No Tenderness to palpation present (GI), No Guarding due to palpation present (GI) and Yes No hepatosplenomegaly present Extremity: COMMON NORMALS: capillary refill normal, no clubbing, cyanosis or edema, no calf tenderness and no pedal edema OTHER: Contractures of the left hand flaccid in the left arm and left hand from previous stroke Neuro: SENSORIUM/ORIENTATION: Yes oriented to person, Yes oriented to place and Yes oriented to time Skin: COMMON NORMALS: no rashes or lesions noted GENERAL SKIN EXAM: no rashes or lesions noted Course 2 Vital Signs: Vital signs: Vital Signs Temperature 98.8 F 10/25/23 08:04 Pulse Rate 95 10/25/23 11:30 Respiratory Rate 23 H 10/25/23 11:30 Blood Pressure 168/89 10/25/23 11:30 Pulse Oximetry 89 L 10/25/23 11:00 Oxygen Delivery Me thod Room Air 10/25/23 08:04 MDM - Neuro Symptoms/Deficit Medical Decision Making No new strokelike symptoms on exam patient not complaining of anything labs are unremarkable repeat CT did not show any new if changes. [facility] continue routine cares Medical Records I reviewed the patient's medical records. Lab Data I reviewed the patient's lab results. 10/25/23 09:03 10/25/23 08:[address] 10/25/23 08:06 IMPRESSION: 1. Hemispheric volume loss. 2. White matter changes suggest micro vessel ischemia on a chronic basis. 3. Subacute or chronic areas of lacunar infarction or ischemia of the right thalamus and robert. ASSESSMENT: ASPECTS ([place] Stroke Program Early CT Score) is 10. Laboratory Results WBC 7.32 10^3/uL (3.29-11.43) 10/25/23 09:03 RBC 4.52 10^6/uL (3.85-5.65) 10/25/23 09:03 Hgb 13.80 g/dL (11.27-16.99) 10/25/23 09:03 Hct 42.4 % (36-47) 10/25/23 09:03 MCV 93.8 fl (85-98) 10/25/23 09:03 MCH 30.5 pg (27-33) 10/25/23 09:03 MCHC 32.5 g/dL (30-55) 10/25/23 09:03 RDW 12.5 % (12.1-15.1) 10/25/23 09:03 Plt Count 230 10^3/cmm (157-399) 10/25/23 09:03 MPV 8.8 fL (7.4-10.4) 10/25/23 09:03 Neut % (Auto) 80.2 % 10/25/23 09:03 Lymph % (Auto) 11.9 % 10/25/23 09:03 [place] % (Auto) 5.6 % 10/25/23 09:03 Eos % (Auto) 1.5 % 10/25/23 09:03 Baso % (Auto) 0.4 % 10/25/23 09:03 Neut # (Auto) 5.87 10^3/uL (1.8-7.7) 10/25/23 09:03 Lymph # (Auto) 0.9 10^3/uL (0.8-4.8) 10/25/23 09:03 [place] # (Auto) 0.4 10^3/uL (0.2-0.9) 10/25/23 09:03 Eos # (Auto) 0.1 10^3/uL (0.0-0.8) 10/25/23 09:03 Baso # (Auto) 0.0 10^3/uL (0.0-0.1) 10/25/23 09:03 Nucleated RBC % (auto) 0 % 10/25/23 09:03 Nucleated RBCs # 0.0 /100WBC 10/25/23 09:03 PT 12.90 SECONDS (12.1-14.9) 10/25/23 09:03 INR 0.95 (0.8-1.2) 10/25/23 09:03 APTT 26.7 SECONDS (23.9-36.7) 10/25/23 09:03 Sodium 139 mmol/L (136-145) 10/25/23 08:11 Potassium 3.9 mmol/L (3.5-5.1) 10/25/23 08:11 Chloride 100 mmol/L (98-107) 10/25/23 08:11 Carbon Dioxide 24 mmol/L (22-29) 10/25/23 08:11 Anion Gap 18.9 (5-19) 10/25/23 08:11 BUN 13 mg/dL (8-23) 10/25/23 08:11 Creatinine 0.5 mg/dL (0.5-0.9) 10/25/23 08:11 GFR Calculation 122.0 mL/min (90-130) 10/25/23 08:11 Glucose 209 mg/dL (65-115) H 10/25/23 08:11 POC Glucose 242 mg/dL (70-110) H 10/25/23 08:54 Calculated Osmolality 294 mOsm/kg (285-295) 10/25/23 08:11 Calcium 8.6 mg/dL (8.5-10.5) 10/25/23 08:11 Total Bilirubin 0.6 mg/dL (0.15-1.2) 10/25/23 08:11 AST 28 U/L (0-32) 10/25/23 08:11 ALT 41 U/L (0-33) H 10/25/23 08:11 Alkaline Phosphatase 99 U/L (35-105) 10/25/23 08:11 Total Protein 7.0 g/dL (6.6-8.7) 10/25/23 08:11 Albumin 3.9 g/dL (3.5-5.2) 10/25/23 08:11 Globulin 3.1 g/dL (1.3-4.6) 10/25/23 08:11 All radiology interpretation(s) finalized by discharge Discharge Plan Discharge Patient Disposition: Home Clinical Impression: Weakness, Hx of completed stroke Condition: Stable Prescriptions: No Action omeprazole 20 mg capsule,delayed release(DR/EC) 20 mg PO DAILY lisinopril 10 mg tablet 20 mg PO DAILY acetaminophen [Tylenol] 325 mg tablet 325 mg PO QID PRN Trulicity 0.75 mg/0.5 mL pen injector SUBCUT fexofenadine 180 mg tablet 180 mg PO DAILY fluticasone propionate 50 mcg/actuation spray,suspension 2 spray intranasal DAILY Rx Instructions: administer into each nostril polyethylene glycol 3350 [Miralax] 17 gram/dose powder 17 g PO DAILY sennosides [senna] 8.6 mg tablet 8.6 mg PO BID bisacodyl [Dulcolax (bisacodyl)] 10 mg suppository 10 mg FL DAILY PRN (Reason: Constipation) magnesium hydroxide [Milk of Magnesia] 400 mg/5 mL suspension 30 ml PO DAILY PRN (Reason: Constipation) Fleet Enema 19-7 gram/118 mL enema 118 ml FL DAILY PRN (Reason: Constipation) (DME) pen needle, diabetic [TechLITE Pen Needle] 31 gauge x 3/16 needle See Rx Instructions .ROUTE .COMPLEX Qty: 300 4RF Dose Instruction: USE DIRECTED Rx Instructions: USE DIRECTED Levemir FlexTouch U100 Insulin 100 unit/mL (3 mL) insulin pen 50 unit SUBCUT BID clopidogrel [Plavix] 75 mg tablet 75 mg PO DAILY Qty: 21 0RF atorvastatin 40 mg Tablet 80 mg PO BEDTIME Qty: 60 0RF atenolol 50 mg Tablet 25 mg PO DAILY Qty: 30 0RF Discharge Orders: Discharge ED (Routine); Ordered 10/25/23 Ordered By: Yogesh Dominique Referrals: Santi Cervantes Jr, MD [Primary Care Provider] - Discharge Diet: Usual diet Discharge Activity: Resume usual activity Patient Instructions: Opioid Safety, Pain Management Activity Restrictions/Additional Instructions: Thank you for choosing [facility] for your healthcare needs today. It is very important that you follow up as instructed or that you return to the Emergency Department should you have concerns or if your condition changes or worsens in any way. You were seen today with concerns of a new stroke. There is no sign of any new or stroke symptoms or extension of your stroke CT of the head was negative. Will [facility] back to the [facility] continue all your current medications. Coding Level of Care Code ED Engagement Manager for Олег Hernandez
[2023-10-25 08:57] LABS: Glucose Point of Care 242 mg/dL (70-110)
[2023-10-25 09:04] LABS: Alanine Aminotransferase 41 U/L (0-33); Albumin Level 3.9 g/dL (3.5-5.2); Alkaline Phosphatase 99 U/L (35-105); Aspartate Amino Transferase 28 U/L (0-32); Blood Urea Nitrogen 13 mg/dL (8-23); Calcium 8.6 mg/dL (8.5-10.5); Carbon Dioxide 24 mmol/L (22-29); Chloride 100 mmol/L (98-107); Creatinine Clr Calc Pharmacy 65.0488; Globulin 3.1 g/dL (1.3-4.6); Glucose 209 mg/dL (65-115); Osmolality Calculated 294 mOsm/kg (285-295); Sodium 139 mmol/L (136-145); Total Bilirubin 0.6 mg/dL (0.15-1.2)
[2023-10-25 09:06] LABS: Anion Gap 18.9 (5-19); Potassium 3.9 mmol/L (3.5-5.1)
[2023-10-25 09:14] LABS: Basophils % 0.4 %; Eosinophils # 0.1 10^3/uL (0.0-0.8); Eosinophils % 1.5 %; Hematocrit 42.4 % (36-47); Lymphocytes # 0.9 10^3/uL (0.8-4.8); Lymphocytes % 11.9 %; Mean Corpuscular HGB Conc 32.5 g/dL (30-55); Mean Corpuscular Hemoglobin 30.5 pg (27-33); Mean Corpuscular Volume 93.8 fl (85-98); Mean Platelet Volume 8.8 fL (7.4-10.4); Monocytes # 0.4 10^3/uL (0.2-0.9); Monocytes % 5.6 %; Neutrophils # 5.87 10^3/uL (1.8-7.7); Neutrophils % 80.2 %; Nucleated Red Blood Cells % 0 %; Platelet Count 230 10^3/cmm (157-399); Red Blood Count 4.52 10^6/uL (3.85-5.65); Red Cell Distribution Width 12.5 % (12.1-15.1); White Blood Count 7.32 10^3/uL (3.29-11.43)
[2023-10-25 09:30] LABS: INR 0.95 (0.8-1.2)
[2023-10-25 09:31] LABS: Partial Thromboplastin Time 26.7 SECONDS (23.9-36.7)
== END 2023-10-25 11:52 | disposition home or self-care (01) ==
PROVIDERS: Emergency Provider Family Medicine; PCP Family Medicine
DX: R53.1 Weakness (principal); Z86.73 Personal history of transient ischemic attack (TIA), and cerebral infarction without residual deficits; Z79.85 Long-term (current) use of injectable non-insulin antidiabetic drugs; Z79.4 Long term (current) use of insulin; Z79.02 Long term (current) use of antithrombotics/antiplatelets; E11.9 Type 2 diabetes mellitus without complications; I10 Essential (primary) hypertension
CPT/HCPCS: 36415; 36416; 70450; 80053; 82962; 85025; 85610; 85730; 93005; 99284

== ENCOUNTER → 2023-12-07 12:39 | Outpatient (BNVA) | payer MEDICARE, MEDICAID, SELFPAY | PROVIDERS: PCP Family Medicine; Visit Provider Internal Medicine | DX: Z86.73 Personal history of transient ischemic attack (TIA), and cerebral infarction without residual deficits (principal); E78.00 Pure hypercholesterolemia, unspecified; E11.65 Type 2 diabetes mellitus with hyperglycemia; Z79.4 Long term (current) use of insulin; I10 Essential (primary) hypertension | CPT/HCPCS: 99214 ==

== ENCOUNTER → 2024-12-05 12:54 | Outpatient (BNVA) | payer MEDICARE, MEDICAID, SELFPAY | PROVIDERS: PCP Family Medicine; Visit Provider Internal Medicine | DX: I10 Essential (primary) hypertension (principal); E11.9 Type 2 diabetes mellitus without complications; Z79.4 Long term (current) use of insulin; E78.00 Pure hypercholesterolemia, unspecified; Z79.02 Long term (current) use of antithrombotics/antiplatelets; Z86.73 Personal history of transient ischemic attack (TIA), and cerebral infarction without residual deficits | CPT/HCPCS: 99213 ==